=== PATIENT | male | born 1960 | race Caucasian/White ===

== ENCOUNTER 2024-04-17 19:30 | Emergency (ER) | payer OTHER, SELFPAY ==
[2024-04-17 19:33] VITALS: BP 191/138; PULSE 114; RESP 20; TEMP 36.7; O2SAT 94; BMI 34.4
--- OUTSIDE RECORDS SUMMARY | 2024-04-17 19:34 | XMS_ITS | Clinical Summary ---
Author Organization [facility] Address [place], [place] [address] Care Team Providers Care Strapper And Buffer Name Role Phone None Primary Care Provider Unavailabl e Allergies No known active allergies Medications Medication Sig Dispensed Refills Start Date End Date Status atorvastatin (LIPITOR) 20 mg tabletIndications:Hyp erlipidemia, unspecified hyperlipidemia type Take 1 Tablet (20 mg) by mouth at bedtime. 90 Tablet 3 11/29/2021 Active lisinopriL (PRINIVIL; ZESTRIL) 40 mg tabletIndications:Hyp ertension, unspecified type Take 1 Tablet (40 mg) by mouth once daily. 90 Tablet 3 11/29/2021 Active rivaroxaban (XARELTO) 20 mg tabletIndications:Per sistent atrial fibrillation (HC) Take 1 Tablet (20 mg) by mouth once daily with evening meal. 90 Tablet 3 11/29/2021 Active metoprolol succinate (TOPROL XL) 100 mg Sustained-Release tablet Take 100 mg by mouth. 12/08/2021 Active furosemide (LASIX) 20 mg tabletIndications:Chr onic systolic CHF (congestive heart failure) (HC) TAKE ONE TABLET BY MOUTH EVERY DAY IN THE MORNING. 90 Tablet 09/01/2022 Active lidocaine 5 % topical patchIndications:Acut e pain of right shoulder Apply on dry, clean, hairless skin. Apply 1 patch to painful area of skin for up to to 12 hours within 24 hour period. 30 Patch 11 02/13/2023 Active diclofenac topical (VOLTAREN) 1 % gelIndications:Arthra lgia, unspecified joint Apply as instructed to affected area by topical route twice daily. 100 g 06/10/2023 Active Active Problems Problem Noted Date Diagnosed Date Persistent atrial fibrillation 11/29/2021 Decreased cardiac ejection fraction 11/29/2021 Overview (02/04/2022): EF 50-55% 2021 Alcohol abuse 01/27/2013 Elevated liver enzymes 01/27/2013 HTN (hypertension) 10/15/2011 Encounters Date Type Department Care Team Description 04/15/2024 Refill [facility] [address] [place] [address] Josee Teague, Refill Request (Atorvastatin, Lisinopril, Diltiazem) from Last 3 Months Immunizations Name Administration Dates Next Due COVID-19 vaccine (Silvia-J&J) PF, MDV Influenza, IIV4 02/01/2022,02/19/2018,01/12/2014 Td (Age >=7 Years) 02/01/2022 Tdap 10/15/2011 Family History Medical History Relation Name Comments Other Father hearing problem s, on lots of meds but not sure what Unknown Mother no contact with mom Relation Name Status Comments Father Mother Social History Tobacco Use Types Packs/Day Years Used Date Smoking Tobacco: Never Smokeless Tobacco: Never Tobacco Cessation:Counseling Given: Yes Alcohol Use Standard Drinks/Week Comments Yes 0 (1 standard drink = 0.6 oz pur e alcohol) PHQ-2 Answer Date Recorded PHQ-2 TOTAL SCORE 0 11/29/2021 Social Connections Answer Date Recorded Frequency of Communication with Friends and Fami ly Not on file 05/08/2021 Alcohol Use Answer Date Recorded How often do you have a drink containing alcohol ? 2 02/01/2022 How many drinks containing a lcohol do you have on a typical day when you are drinking? 4 02/01/2022 How often do you have five or more drinks on one occasion? 2 02/01/2022 Financial Resource Strain Answer Date R ecorded Difficulty of Paying Living Expenses Not on file 05/08/2021 Difficulty of Paying Living Expenses Not on file 05/08/2021 Sex and Gender Information Value Date Recorded Sex Assigned at Not on file Gender Identity Not on file Sexual Orientation Not on file Obstetrics History Last Filed Vital Signs Vital Sign Reading Time Taken Comments Blood Pressure 162/95 04/09/2023 2:06 PM MILL CONTROL OPERATOR recheck BP Pulse 81 04/09/2023 2:06 PM MILL CONTROL OPERATOR Temperature 36.7 C (98 F) 04/24/2021 4:11 PM MILL CONTROL OPERATOR Respiratory Rate 16 04/24/2021 4:11 PM MILL CONTROL OPERATOR Oxygen Saturation 96% 04/09/2023 2:0 6 PM MILL CONTROL OPERATOR Inhaled Oxygen Concentration - - Weight 108.8 kg (239 lb 12. 8 oz) 04/09/2023 2:03 PM MILL CONTROL OPERATOR Height 175 cm (5' 8.9) 02/01/2022 3:54 PM CDT Body Mass Index 35.52 02/01/2022 3:54 PM CDT Plan of Treatment Upcoming Encounters Date Type Department Care Team (Late st Contact Info) Description 04/28/2024 3:10 PM MILL CONTROL OPERATOR Office Visit [facility] [address] [place] [address] Josee Teague DO [address] [place] [address] Health Maintenance Due Date Last Done Comments Pneumococcal series for age 6-64 (1 of 2 - PCV) 08/11/1967 HIV for age 15-65 1976 Colonoscopy through age 75 2006 Zoster (shingles) series for age 50+ (1 of 2) 08/11/2011 BMI (ht and wt on same day) for age 18+ 11/29/2022 11/29/2021, 04/24/2021, 10/03/2020, Additional history exists Depression screening for age 12+ 11/29/2022 11/29/2021, 10/03/2020, 05/29/2019, Additional history exists COVID-19 vaccine series ( season) 2024 06/20/2021, 10/03/2020 Influenza for age 50-64 01/12/2024 02/02/20, 02/19/2018, 01/12/2014 Lipids for age 45-75 11/29/2026 11/29/2021, 10/03/2020, 05/28/2019, Additional history exists Tetanus booster 02/02/2032 02/01/2022, 10/15/2011 Tdap Completed 10/15/2011 Hepatitis C screening for ag e 18-79 Completed 01/12/2014 Goals Goal Patient Goal Type Associated Problems Recent Progress Patient-Stated? Author BLOOD PRESSURE - MAINTAINS BP less than 140/90 Blood Pressure Kia Porter MD Procedures Procedure Name Priority Date/Time Associated Diagnosis Comments LDL CHOLESTEROL,DIRECT Routine 11/29/2021 3:40 PM CDT Hyperlipidemia, unspecified hyperlipidemia type ANTI HCV Routine 01/12/2014 4:15 PM CDT Need for hepatitis C screening test from Last 3 Months or Most Recently Relevant to Health Maintenance Results * LDL CHOLESTEROL,DIRECT (11/29/2021 3:40 PM CDT) Pathologist [facility] LDL CHOLESTEROL,DI RECT 54 mg/dL 11/30/2021 4:47 PM CDT [facility] PROVIDER ORDERED STATUS RANDOM 11/30/2021 4:47 PM CDT [facility] Blood BLOOD SPECIMEN / Unknown Venipuncture / Unknown 11/29/2021 3:40 PM CDT 11/29/2021 3:40 PM CDT Narrative [facility] - 11/30/2021 4:47 PM CDT RISK CATEGORY LDL GOAL (mg/dL) Vascular disease and/or diabetes (<100) Multiple (2+) risk factors (<130) 0-1 risk factor (<160) Josee Teague DO CHEMISTRY [facility] [address] [place] [address], * ANTI HCV [17927.2] (01/12/2014 4:15 PM CDT) Pathologist [facility] HEPATITIS C ANTIBODY Non-Reacti ve Non-Reacti ve 01/13/2014 1:19 PM CDT [facility] Blood specimen (specimen) BLOOD SPECIMEN / Unknown Venipuncture / Unknown 01/12/2014 4:15 PM CDT 01/12/2014 4:15 PM CDT Narrative [facility] - 01/13/2014 1:19 PM CDT Antibodies to HCV not detected; does not exclude the possibility of exposure to HCV. Josee Teague DO SEND OUTS [facility] [address] [place] [address], [place] from Last 3 Months or Most Recently Relevant to Health Maintenance Care Teams Strapper And Buffer Relationship Specialty Start Date End Date None . PCP - General 03/24/24
--- OUTSIDE RECORDS SUMMARY | 2024-04-17 19:34 | XMS_ITS | Encounter Summary ---
Author Organization [place] Address formerly [facility] [place] [address] Care Team Providers Care Side Show Entertainer Name Role Phone Clinic, [facility] Primary Care Provider Kodak Rome MD Unavailable [phone] Reason for Visit * Reason Onset Date Comments Medication Request 12/24/2023 atorvastatin ,xarelto ,furosemide,lisinopril Encounter Details Date Type Department Care Team (Late st Contact Info) Description 12/24/2023 [facility] [address] [place] [address] Kodak Rome MD [address] [place] [address] [address] [place], [place] [id number] Medication Request (atorvastatin ,xarelto ,furosemide,/lisinopril ) Social History Tobacco Use Types Packs/Day Years Used Date Smoking Tobacco: Never Smokeless Tobacco: Never Alcohol Use Standard Drinks/Week Comments Yes 0 (1 standard drink = 0.6 oz pur e alcohol) occasional beer on weekends PHQ-2 Answer Date Recorded PHQ-2 Score 0 08/31/2022 Adolescent Education Answer Date Record ed Getting School Help Needed Not on file 02/02 Sex and Gender Information Value Date Recorded Sex Assigned at Not on file 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 Yes Name of medication being requested: atorvastatin xarelto furosemide lisinopril Provider who prescribed the medication: Dr. rome Pharmacy: [id number] Date medication is needed: 12/25/2023 Action Taken: Other: cardiology Travel Screening: Not Applicable Thank you! Specialty Access Center Date of Service: documented in this encounter Plan of Treatment Not on file documented as of this encounter Visit Diagnoses Not on filedocumented in this encounter Care Teams Side Show Entertainer Relationship Specialty Start Date End Date [facility], [address] [address] PCP - General 11/01/21 Kodak Rome MD [address] [place] [address] Assigned Heart and Vascular Provider 12/09/21 03/03/24 documented as of this encounter
--- OUTSIDE RECORDS SUMMARY | 2024-04-17 19:34 | XMS_ITS | Encounter Summary ---
Author Organization [place] [facility] [place] Address [facility] 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 Letter sent. No additional refills without follow up. CTOR OF REIMBURSEMENT * Telephone Encounter - Natalie Engel RN - 03/31/2024 4:16 PM DIRECTOR OF REIMBURSEMENT Patient called a second time and VM left to inform him that xeralto has been refilled for 1 month with 1 refill and that he will need a follow up with Cardiology or [facility] for ongoing prescriptions. Patient asked to please return call to team 2 nurse line to confirm he has received messages. CTOR OF REIMBURSEMENT * Telephone Encounter - Kira Vyas RN - 03/31/2024 1:06 PM CST Images from the original note were not included. Kodak Rome MD You54 minutes ago (12:11 PM) Refill meds. He needs to follow-up with either us or primary in the next month or 2. 30 days with 1 refill sent to pharmacy. Called patient and left a message to please call back to discuss refills and need for cardiology follow up. CTOR OF REIMBURSEMENT * Telephone Encounter - Kira Vyas RN - 03/31/2024 11:10 AM CST [facility] Refill Guideline reviewed. Medication does not meet criteria for refill dueto overdue for follow up, no responses to outreach attempts. Messaged to providers team for furtherreview. CTOR OF REIMBURSEMENT documented in this encounter Plan of Treatment Not on file documented as of this encounter Visit Diagnoses Diagnosis New onset atrial fibrillation (H) Atrial fibrillation documented in this encounter Care Teams Life Care Planner Relationship Specialty [place] [address] PCP - General 11/01/21 documented as of this encounter
--- OUTSIDE RECORDS SUMMARY | 2024-04-17 19:34 | XMS_ITS | Referral Summary ---
Author Organization [place] Address [facility] [address] Care Team Providers Care Planning Specialist Name Role Phone [facility], [facility] Primary Care Provider Encounters Date Type Department Care Team Description 03/31/2024 Telephone [facility] [address] [place] [address] Kira Vyas RN Refill Request (Xarelto/) from Last 3 Months Allergies No known active allergies Medications metoprolol succinate ER (TOPROL XL) 100 MG 24 hr tabletIndications:Chron ic atrial fibrillation (H) Take 1 tablet (100 mg) by mouth 2 times daily 180 tablet 024 Active diltiazem ER (DILT-XR) 120 MG 24 hr capsuleIndications:New onset atrial fibrillation (H) Take 1 capsule (120 mg) by mouth 2 times daily Appointment required for further refills 180 capsule 024 Active atorvastatin (LIPITOR) 20 MG tabletIndications:Pure hypertriglyceridemia Take 1 tablet (20 mg) by mouth daily Appointment required for further refills 90 tablet 024 Active furosemide (LASIX) 20 MG tabletIndications:Essen tial hypertension Take 1 tablet (20 mg) by mouth daily Appointment required for further refills 90 tablet 024 Active lisinopril (ZESTRIL) 40 MG tabletIndications:Essen tial hypertension Take 1 tablet (40 mg) by mouth daily. 90 tablet 024 Active rivaroxaban ANTICOAGULANT (XARELTO) 20 MG TABS tabletIndications:New onset atrial fibrillation (H) Take 1 tablet (20 mg) by mouth daily (with dinner). Appointment required for further refills 30 tablet 1 Active rivaroxaban ANTICOAGULANT (XARELTO) 20 MG TABS tabletIndications:New onset atrial fibrillation (H) Take 1 tablet (20 mg) by mouth daily (with dinner) Appointment required for further refills 90 tablet 024 2023 Disconti nued(Reo rder (No AVS)) Active Problems Problem Noted Date Diagnosed Date Ascending aorta dilatation 08/31/2022 Dilated aortic root 08/31/2022 Heart failure with preserved ejection fraction, NYHA class I 08/31/2022 Nonischemic cardiomyopathy 08/31/2022 Essential hypertension 12/08/2021 Class 2 obesity due to exces s calories without serious comorbidity with body mass index (BMI) of 35.0 to 35.9 in adult 12/08/2021 Peripheral edema 12/08/2021 Pure hypertriglyceridemia 12/08/2021 Permanent atrial fibrillation 11/01/2021 Social History Tobacco Use Types Packs/Day Years [...] on file 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 Gender Identity Not on file Sexual Orientation Not on file Last Filed Vital Signs Vital Sign Reading Time Taken Comments Blood Pressure 119/79 08/31/2022 3:23 PM CDT Pulse 57 08/31/2022 3:23 PM CDT Temperature 36.3 C (97.4 F) 11/02/2021 9:56 AM CDT Respiratory Rate 18 11/02/2021 9:56 AM CDT Oxygen Saturation 96% 08/31/2022 3:23 PM CDT Inhaled Oxygen Concentration - - Weight 105.7 kg (233 lb 1.6 oz) 08/31/2022 3:23 PM CDT Height 172.7 cm (5' 8) 08/31/2022 3:23 PM CDT Body Mass Index 35.44 08/31/2022 3:23 PM CDT Plan of Treatment Not on file Procedures Procedure Name Priority Date/Time Associated Diagnosis Comments LIPID PROFILE Routine 2022 7:45 AM CDT Pure hypertriglyceridemia BASIC METABOLIC PANEL Routine 2022 7:45 AM CDT Essential hypertension ALT Routine 2022 7:45 AM CDT Pure hypertriglyceridemia CBC WITH PLATELETS Routine 11/02/2021 6:12 AM CDT TSH WITH FREE T4 REFLEX STAT 11/01/2021 3:17 PM CDT from Last 3 Months or Most Recently Relevant to Health Maintenance Results * Lipid Profile (2022 7:45 AM CDT) Cholesterol 117 <200 mg/dL 2022 11:34 AM CDT [facility] Triglycerides 126 <150 mg/dL 2022 11:34 AM CDT [facility] Direct Measure HDL 42 >=40 mg/dL 2022 11:34 AM CDT [facility] LDL Cholesterol Calculated 50 <=100 mg/dL 2022 11:34 AM CDT [facility] Non HDL Cholesterol 75 <130 mg/dL 2022 11:34 AM CDT [facility] Blood STRUCTURE OF LEFT UPPER LIMB / Unknown Venipuncture / Unknown 2022 7:45 AM CDT 2022 7:50 AM CDT Narrative [facility] - 2022 11:34 AM CDT Cholesterol Desirable: <200 mg/dL Triglycerides Normal: Less than 150 mg/dL Borderline High: 150-199 mg/dL High: 200-499 mg/dL Very High: Greater than or equal to 500 mg/dL Direct Measure HDL Female: Greater than or equal to 50 mg/dL Male: Greater than or equal to 40 mg/dL LDL Cholesterol Desirable: <100mg/dL Above Desirable: 100-129 mg/dL Borderline High: 130-159 mg/dL High: 160-189 mg/dL Very High: >= 190 mg/dL Non HDL Cholesterol Desirable: 130 mg/dL Above Desirable: 130-159 mg/dL Borderline High: 160-189 mg/dL High: 190-219 mg/dL Very High: Greater than or equal to 220 mg/dL Kodak Rome MD LAB - BLOOD ORDERABLES Fin al Result LABORATORY [facility] [place] [facility] [address] [facility] [address], [address] [place] [address], [place] [phone] * ALT (2022 7:45 AM CDT) ALT 48 10 - 50 U/L 2022 8:21 AM CDT LABORATORY Blood STRUCTURE OF LEFT UPPER LIMB / Unknown Venipuncture / Unknown 2022 7:45 AM CDT 2022 7:50 AM CDT Kodak Rome MD LAB - BLOOD ORDERABLES Fin al Result LABORATORY [facility] [address] Lab (1st floor, no room number) [place] [address], [place] [phone] * (ABNORMAL) Basic metabolic panel (2022 7:45 AM CDT) Sodium 139 136 - 145 mmol/L 2022 8:21 AM CDT LABORATORY Potassium 4.2 3.4 - 5.3 mmol/L 2022 8:21 AM CDT LABORATORY Chloride 103 98 - 107 mmol/L 2022 8:21 AM CDT LABORATORY Carbon Dioxide (CO2) 25 22 - 29 mmol/L 2022 8:21 AM CDT LABORATORY Anion Gap 11 7 - 15 mmol/L 2022 8:21 AM CDT LABORATORY Urea Nitrogen 15.0 8.0 - 23.0 mg/dL 2022 8:21 AM CDT [facility] Creatinine 0.83 0.67 - 1.17 mg/dL 2022 8:21 AM CDT [facility] Calcium 9.6 8.8 - 10.2 mg/dL 2022 8:21 AM CDT [facility] Glucose 122(H) 70 - 99 mg/dL 2022 8:21 AM CDT [facility] GFR Estimate >90 >60 mL/min/1.7 3m2 2022 8:21 AM CDT [facility] Comment:eGFR calculated usin 2020 CKD-EPI equation. Blood STRUCTURE OF LEFT UPPER LIMB / Unknown Venipuncture / Unknown 2022 7:45 AM CDT 2022 7:50 AM CDT Kodak Rome MD LAB - BLOOD ORDERABLES Fin al Result [facility] [address] Lab (1st floor, no room number) [place] [address], [facility] [phone] * CBC with platelets (11/02/2021 6:12 AM CDT) WBC Count 6.0 4.0 - 11.0 10e3/uL 11/02/2021 6:29 AM CDT [facility] RBC Count 4.69 4.40 - 5.90 10e6/uL 11/02/2021 6:29 AM CDT [facility] Hemoglobin 15.2 13.3 - 17.7 g/dL 11/02/2021 6:29 AM CDT [facility] Hematocrit 45.7 40.0 - 53.0 % 11/02/2021 6:29 AM CDT [facility] MCV 97 78 - 100 fL 11/02/2021 6:29 AM CDT [facility] MCH 32.4 26.5 - 33.0 pg 11/02/2021 6:29 AM CDT [facility] MCHC 33.3 31.5 - 36.5 g/dL 11/02/2021 6:29 AM CDT [facility] RDW 13.0 10.0 - 15.0 % 11/02/2021 6:29 AM CDT [facility] Platelet Count 193 150 - 450 10e3/uL 11/02/2021 6:29 AM CDT [facility] Blood STRUCTURE OF RIGHT HAND / Unknown Venipuncture / Unknown 11/02/2021 6:12 AM CDT 11/02/2021 6:24 AM CDT Doreen Ford PA-C LAB - BLOOD ORDERABLES Fin al Result [facility] [address] Lab (1st floor, no room number) [place] [address], [facility] [phone] * (ABNORMAL) TSH with free T4 reflex (11/01/2021 3:17 PM CDT) TSH 4.29(H) 0.40 - 4.00 mU/L 11/01/2021 4:22 PM CDT [facility] Blood STRUCTURE OF RIGHT UPPER LIMB / Unknown Venipuncture / Unknown 11/01/2021 3:17 PM CDT 11/01/2021 3:23 PM CDT Epifanio Qiu MD LAB - BLOOD ORDERABLES Fin al Result Performing Organization Address City/[facility]/ZIP Co de Phone Number [facility] [address] Lab (1st floor, no room number) [place] [address], [facility] [phone] from Last 3 Months or Most Recently Relevant to Health Maintenance Insurance [facility] Advance Directives For more information, please contact: [phone] * Full Code (Latest Code Status on File) Date Activated Date Inactivated Comments 11/01/2021 9:01 PM 11/02/2021 2:08 PM All basic an d advanced life-sustaining interventions are performed as appropriate Question Answer Comments Code status determined by: Discussion with wendy nt/ legal decision maker Care Teams Planning Specialist Relationship Specialty Start Date End Date [facility], [address] [address] PCP - General 11/01/21
--- OUTSIDE RECORDS SUMMARY | 2024-04-17 19:34 | XMS_ITS | Clinical Summary ---
Author Organization [place] Address [facility] [place] [address] Care Team Providers Care Ui Developer Name Role Phone Clinic, [facility] Primary Care Provider Allergies No known active allergies Medications metoprolol [...] required for further refills 30 tablet 1 024 Active rivaroxaban ANTICOAGULANT (XARELTO) 20 MG [...] Pure hypertriglyceridemia 12/08/2021 Permanent atrial fibrillation 11/01/2021 Encounters Date Type Department Care Team Description 03/31/2024 Telephone [facility] [address] [place] [address] Kira Vyas RN Refill Request (Xarelto/) from Last 3 Months Social History Tobacco Use Types Packs/Day Years [...] on file Legal Sex Male 3:26 AM [employer] Gender Identity Not on file Sexual Orientation [...] 08/31/2022 3:23 PM CDT Plan of Treatment Health Maintenance Due Date Last Done Comments ADVANCE CARE PLANNING 1960 ANNUAL REVIEW OF HM ORDERS 1961 CT COLONOGRAPHY 1961 FIT 1961 FLEX SIG 1961 HF ACTION PLAN 1961 sDNA (Cologuard) 1960 Pneumococcal Vaccine: Pediatrics (0 to 5 Years) and At-Risk Patients (6 to 64 Years) (1 of 2 - PCV) 08/11/1967 COLONOSCOPY 08/11/1971 COLORECTAL CANCER SCREENING 08/11/1971 HIV SCREENING 1976 HEPATITIS C SCREENING 08/11/1979 ZOSTER IMMUNIZATION (1 of 2) 08/11/2011 RSV VACCINE (1 - Risk 60-74 years 1-dose series) 2021 CBC 11/02/2022 11/02/2021, 11/01/2021 YEARLY PREVENTIVE VISIT 02/01/2023 02/02/20 22, 10/03/2020 BMP 02/09/2023 2022, 11/01/2021, 12/06/2005 PHQ-2 (once per calendar year) 2023 08/31/2022 ALT 08/11/2023 2022, 12/06/2005 LIPID 08/11/2023 2022 COVID-19 Vaccine (3 - 2023-2 5 season) 2024 06/20/2021, 10/03/2020 INFLUENZA VACCINE (#1) 2024 , 02/19/2018, 01/12/2014 GLUCOSE 2025 2022, 11/01/2021, 12/06/2005 DTAP/TDAP/TD IMMUNIZATION (3 - Td or Tdap) 02/02/2032 02/01/2022, 10/15/2011 TSH W/FREE T4 REFLEX Completed 11/01/2021, 11/01/2021 HPV IMMUNIZATION Aged Out No longer e ligible based on patient's age to complete this topic MENINGITIS IMMUNIZATION Aged Out No l onger eligible based on patient's age to complete this topic RSV MONOCLONAL ANTIBODY Aged Out No l onger eligible based on patient's age to complete this topic Procedures Procedure Name Priority Date/Time Associated Diagnosis [...] LAB - BLOOD ORDERABLES Fin al Result [facility] [address] [facility] [address] [facility], Room [address] [place] [address], [facility] [phone] * ALT (2022 7:45 AM CDT) ALT 48 10 - 50 U/L 2022 8:21 AM CDT LABORATORY Blood STRUCTURE OF LEFT UPPER LIMB / Unknown Venipuncture / Unknown 2022 7:45 AM CDT 2022 7:50 AM CDT Kodak Rome MD LAB - BLOOD ORDERABLES Fin al Result LABORATORY [facility] [address] Lab (1st floor, no room number) [place] [address], [facility] [phone] * (ABNORMAL) Basic metabolic panel (2022 7:45 AM CDT) Sodium 139 136 - 145 mmol/L 2022 8:21 AM CDT LABORATORY Potassium 4.2 3.4 - 5.3 mmol/L 2022 8:21 AM CDT [facility] Chloride 103 98 - 107 mmol/L 2022 8:21 AM CDT LABORATORY Carbon Dioxide (CO2) 25 22 - 29 mmol/L 2022 8:21 AM CDT LABORATORY Anion Gap 11 7 - 15 mmol/L 2022 8:21 AM CDT [facility] Urea Nitrogen 15.0 8.0 - 23.0 [...] 8:21 AM CDT [facility] Comment:eGFR calculated us2020 CKD-EPI equation. Blood STRUCTURE OF LEFT UPPER LIMB / Unknown Venipuncture / Unknown 2022 7:45 AM CDT 2022 7:50 AM CDT Kodak Rome MD LAB - BLOOD ORDERABLES Fin al Result [facility] LABORATORY [facility] [address] Lab (1st floor, no room number) [place] [address] [phone] * CBC with platelets (11/02/2021 6:12 AM [...] ORDERABLES Fin al Result Performing Organization Address City/[facility]/ZIP Co de Phone Number [facility] [address] Lab (1st floor, no room number) [place] [address], [facility] [phone] * (ABNORMAL) TSH with free T4 reflex (11/01/2021 3:17 PM CDT) TSH 4.29(H) 0.40 - 4.00 mU/L 11/01/2021 4:22 PM CDT [facility] Blood STRUCTURE OF RIGHT UPPER LIMB / Unknown Venipuncture / Unknown 11/01/2021 3:17 PM CDT 11/01/2021 3:23 PM CDT Epifanio Qiu MD LAB - BLOOD ORDERABLES Fin al Result Performing Organization Address [facility]/ZIP Co de Phone Number [facility] Lab [address] Lab (1st floor, no room number) [place] [address], [facility] [phone] from Last 3 Months or Most Recently Relevant to Health Maintenance Insurance [employer] [place] Advance Directives For more information, please contact: [phone] * Full Code (Latest Code Status on File) Date Activated Date Inactivated Comments 11/01/2021 9:01 PM 11/02/2021 2:08 PM All basic an d advanced life-sustaining interventions are performed as appropriate Question Answer Comments Code status determined by: Discussion with wendy nt/ legal decision maker Care Teams Ui Developer Relationship Specialty Start Date End Date [facility], [address] [id number] PCP - General 11/01/21
--- NOTE | 2024-04-17 19:50 | ED.GENADULT ---
HPI - General Adult General Date Seen: 04/17/24 Chief complaint: Chest Pain Stated complaint: trouble breathing, chest pain Time Seen by Provider: 04/17/24 19:49 History of Present Illness HPI narrative: 63-year-old male presenting to the ER today for chest pain and shortness of breath that happened today and is been getting steadily worse. 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 He has pain in the center of his chest that is worth with movement and exertion. No recent illnesses. Is unsure of his med list but has been out of his meds for a week. He has been trying to get hold of his PCP to get his meds refilled with having responded yet. Says over the past week being off his meds he has gained about 6 lb. He has not really noticed any fluid retention in his ankles. Does have some chronic peripheral edema but is not any worse than normal. He has not had any fever chills. No cough. No recent travel or immobilization. Since yesterday started having some mild discomfort in the central chest just left of the sternal border. It was very mild yesterday and was present off and on. No clear pattern. Today the pain is again been present off and on all day. At about 303 this afternoon he was installing a new dryer in his house. 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 He says it does go only been down for a few seconds and then had to sit up and rest because he was so short of breath. His chest pain really did not get worse during that episode. He is worried that he might be having the symptoms because he is out of his meds. He also did a Google search and he is worried about congestive heart failure. He has a history of AFib. He is on blood pressure medications. He has not had any previous stents. We have no previous records in the [facility] medical record. He does have a chart in the [employer] system. Per [facility] care link past medical history includes: Hypertension Persistent atrial fibrillation Decreased ejection fraction Alcohol abuse Ascending aortic dilatation Med list include Atorvastatin Furosemide 20 mg daily Lisinopril 40 mg daily Metoprolol XL 100 mg daily Xarelto 20 mg daily. It looks like his clinics and a message to his PCP requesting follow-up on 04/17 (today) Simón castrejon looks like he sees the [facility] technician automated equipment, Dr. Rome. Most recent cardiology note I can find in his chart was from 08/31/[address] Diaz Per his cardiology note 08/31/2022... 61-year-old gentleman with PMH... hypertension, obesity, peripheral edema, hypertriglyceridemia and asymptomatic atrial fibrillation. ? 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 He was sent to the [facility] where he was admitted. Metoprolol tartrate was added to his regimen. Troponins were negative. TSH was mildly elevated at 4.29 with a T4 of 0.8. EKG demonstrated atrial fibrillation with a rate of approximately 110. ? Echocardiogram was performed demonstrating ejection fraction of 50%-55%. He had [id number] left ventricular hypertrophy, mild mitral regurgitation, tricuspid regurgitation, aortic insufficiency with mild to moderate pulmonic regurgitation. He also had a mildly dilated aortic root at 3.9 and ascending aorta at 4.1. Pulmonary pressures estimated to be 23 mmHg plus right atrial pressure. He had a normal IVC. ? Follow up with his primary care doctor rechecked a TSH which is normal. BNP is mildly elevated at 297 with their normal limits being less than 100. Last fasting lipid profile that I find in the chart is from 2019 with total cholesterol of 132, HDL 47, LDL of 47 and triglycerides of 192. Reviewing his primary care's note, he was set up for a sleep study and a stress nuclear scan.Robert states that he has no family history of coronary artery disease. He is a lifelong nonsmoker. He states he used to drink alcohol quite heavily, but when his passed 2 years ago, he stopped. He was drinking mostly with her. He states now he drinks probably 2 days a week, although on the weekend he states he can drink up to a 12-pack of beer a day but normally just has a 2 or 3 drinks. He has no exertional chest, arm, neck, jaw or shoulder discomfort. Denies dyspnea on exertion, orthopnea or PND. He is completely unaware of his A-fib. He has had no bleeding problems on his warfarin. No symptoms to suggest a TIA or CVA. His ankle edema is at baseline. He does stand for prolonged periods of time at work ? His Lexiscan was negative for ischemia. Assessment and plan. Paula appears to be doing well from a cardiac standpoint without clinical evidence of ischemia or heart failure. I will recheck an echocardiogram to comes back next time but I suspect his mild nonischemic cardiomyopathy has resolved. We made multiple adjustments on his medications to get control of his A-fib with his most recent follow-up Holter demonstrating an average heart rate of 80 ranging from 50-132. There was some confusion between our records in his records but he is not on diltiazem. And clearly has a well-controlled heart rate. Today's EKG demonstrates A-fib flutter with a heart rate of 82. He will continue on anticoagulation to decrease his risk of a cerebrovascular accident. Regarding his peripheral edema I suspect is primarily dependent edema probably with some venous insufficiency. We talked about the importance of salt in his diet and using compression stockings. If he continues to have problems I can refer him onto the venous clinic. As stated his thyroid function test have normalized. I will also check a CMP to see what his total protein and albumin are doing. They were last checked in 2005. Related Data Home Medications ?Medication ?Instructions ?Recorded ?Confirmed atorvastatin 20 mg tablet 20 mg PO DAILY 04/17/24 04/17/24 diltiazem HCl 120 mg 120 mg PO BID 04/17/24 04/17/24 capsule,extended release 24 hr, controlled furosemide 20 mg tablet 20 mg PO DAILY 04/17/24 04/17/24 lisinopril 40 mg tablet 40 mg PO DAILY 04/17/24 04/17/24 metoprolol succinate 100 mg 100 mg PO BID 04/17/24 04/17/24 tablet,extended release 24 hr rivaroxaban 20 mg tablet (Xarelto) 20 mg PO QPM 04/17/24 04/17/24 Previous Rx's ?Medication ?Instructions ?Recorded furosemide 20 mg tablet 20 mg PO DAILY #30 tabs 04/17/24 lisinopril 40 mg tablet 40 mg PO DAILY #30 tabs 04/17/24 metoprolol succinate 100 mg 100 mg PO DAILY #30 tabs 04/17/24 tablet,extended release 24 hr rivaroxaban 20 mg tablet (Xarelto) 20 mg PO DAILY #30 tabs 04/17/24 Allergies Allergy/AdvReac Type Severity Reaction Status Date / Time No Known Drug Allergies Allergy Verified 04/17/24 19:40 [facility] Social History Smoking Status: Never smoker Do you use any of these nicotine containing products: None Second hand tobacco smoke exposure: No How often do you have a drink containing alcohol: never AUDIT-C Alcohol total score: 0 Non-prescribed substance use: denies use service: No Exam Narrative: Exam Narrative: Constitutional: Appears well-developed and well-nourished. Alert. Conversant. Non toxic. Conversant and smiling and laughing. Has a good sense of humor. HENT: Head: Atraumatic. Nose: Nose normal. Mouth/Throat: Oral mucosa is clear and moist. no trismus. Pharynx normal. Tonsils symmetric. No tonsillar enlargement, erythema, or exudate. Eyes: Conjunctivae normal. EOM normal. Pupils equal, round, and reactive to light. No scleral icterus. Neck: Normal range of motion. Neck supple. No tracheal deviation present. No JVD Cardiovascular: Tachycardic, irregularly irregular rhythm. Heart rate ranging about 110-115 on the monitor, atrial fibrillation.. No gallop. No friction rub. No murmur heard. Symmetric radial and PT artery pulses Pulmonary/Chest: Effort normal. No stridor. No respiratory distress. No wheezes. No rales. No rhonchi . No tenderness. Abdominal: Soft. Bowel sounds normal. No distension. No mass. No tenderness. No rebound. No guarding. Musculoskeletal: RUE: Normal range of motion. No tenderness. No deformity LUE: Normal range of motion. No tenderness. No deformity RLE: Normal range of motion. Trace edema. No tenderness. No deformity LLE: Normal range of motion. Trace edema. No tenderness. No deformity Lymph: No cervical adenopathy. Neurological: Alert and oriented to person, place, and time. Normal strength. CN II-VII intact. No sensory deficit. GCS eye subscore is 4. GCS verbal subscore is 5. GCS motor subscore is 6. Normal coordination Skin: Skin is warm and dry. No rash noted. No pallor. Normal capillary refill. Psychiatric: Normal mood. Normal affect. Const: Vital Signs, click to edit/add: Vital Signs - 24 hr 04/17/24 19:33 04/17/24 22:44 Temperature 98.0 F 98.0 F Pulse Rate [Pulse Oximeter] 114 H 79 Respiratory Rate 20 16 Blood Pressure [Le ft Upper Arm] 191/138 H 145/100 H Pulse Oximetry 94 95 Oxygen Delivery Me thod Room Air Room Air Course Course ED Course: Recheck-heart rate down to the 70s and 80s after administration of metoprolol. Blood pressure is also down after oral metoprolol. Patient says he feels much better and back to normal. Initial troponin is normal. Waiting on chest x-ray results. Given chest pain will check a 2nd troponin 2 hours after the 1st. Reevaluation(s) Reevaluation #1: Recheck-2nd troponin is back and is normal. Vital Signs Vital signs: Initial Vital Signs Temperature 98.0 F 04/17/24 19:33 Temperature Source Temporal Artery Scan 04/17/24 19:33 Pulse Rate 114 H 04/17/24 19:33 Respiratory Rate 20 04/17/24 19:33 Blood Pressure 191/138 H 04/17/24 19:33 Blood Pressure Mean 155 H 04/17/24 19:33 Blood Pressure Position Supine 04/17/24 19:33 Pulse Oximetry 94 04/17/24 19:33 Oxygen Delivery Method Room Air 04/17/24 19:33 Vital Signs Temperature 98.0 F 04/17/24 19:33 Pulse Rate 114 H 04/17/24 19:33 Respiratory Rate 20 04/17/24 19:33 Blood Pressure 191/138 H 04/17/24 19:33 Pulse Oximetry 94 04/17/24 19:33 Oxygen Delivery Method Room Air 04/17/24 19:33 Temperature 98.0 F 04/17/24 22:44 Pulse Rate 79 04/17/24 22:44 Respiratory Rate 16 04/17/24 22:44 Blood Pressure 145/100 H 04/17/24 22:44 Pulse Oximetry 95 04/17/24 22:44 Oxygen Delivery Method Room Air 04/17/24 22:44 Medications Administered Medications: Discontinued Medications Generic Name Dose Route Start Last Admin Trade Name Freq PRN Reason Stop Dose Admin Aspirin 162 mg 04/17/24 20:14 04/17/24 20:25 Aspirin 81 Mg Tab.Chew PO 04/17/24 20:15 162 mg ONCE ONE Administration Metoprolol Tartrate 50 mg 04/17/24 20:14 04/17/24 20:26 Metoprolol Tartrate 50 Mg Tablet PO 04/17/24 20:15 50 mg ONCE ONE Administration Medical Decision Making MDM Narrative Medical decision making narrative: This patient presents to the ER today for evaluation of chest pain that is been going on since yesterday, intermittently but almost all day long today. Also some shortness of breath that began this afternoon while he was installing a new dryer in his home.. Differential was broad. He does have history of persistent atrial fibrillation and unfortunately has been out of his meds for the past week because he was not able to get refills arrange through his primary care clinic. As result he does have atrial fibrillation with rapid ventricular response. Heart rate typically in the 1 teens up to 120. After oral metoprolol heart rate is down into the 70s 80s and he says he feels dramatically better. His chest discomfort is gone and his breathing is back to normal. I suspect that his symptoms were probably driven by rapid ventricular response with his AFib. However a broader differential is considered. We considered possible ACS, however workup with EKG and troponin is negative. Given time since onset of symptoms, with intermittent symptoms in a we did check delta troponins which are both normal. I do not think the patient needs to be admitted for further sets of enzymes. EKG shows no evidence for pericarditis. Clinical presentation not suggestive of myocarditis. Chest x-ray shows no evidence for pneumonia, pneumothorax, pulmonary edema, pleural effusion, rib fracture, cardiomegaly. Mediastinum is normal on the x-ray. The patient has no ripping or tearing pain through to the back and has symmetric pulses on exam, no other acute neuro findings so I doubt aortic dissection. Risk of radiation and contrast exposure would outweigh the benefit of CT angiogram. We considered PE for this patient. Overall low risk. D-dimer is normal. No wheezing or bronchospasm to suggest COPD/asthma. No signs of chest wall cellulitis, shingles, injury. With reasonable clinical confidence, I think the patient is safe for outpatient follow up. Discussed return precautions. Questions answered. Patient voices comfort with the plan. Will send in prescriptions for refills for his Xarelto, metoprolol, lisinopril. He will follow-up with his PCP office for his checkup and to get other medications refilled. Lab Data Labs: Lab Results 04/17/24 Range/Units 20:04 WBC 7.93 (4.50-11.00) K/uL RBC 4.31 (4.30-5.90) m/uL Hgb 14.4 (13.5-17.5) gm/dL Hct 43.2 (37.0-53.0) % MCV 100 (80-100) fL MCH 33 (26-34) pg MCHC 33 (32-36) gm/dL RDW Coeff of Serina 13.2 (11.5-15.5) % Plt Count 137 L (140-440) K/uL Neut % (Auto) 51.5 (42.0-72.0) % Lymph % (Auto) 37.6 (20-44) % [place] % (Auto) 9.0 (0.0-11.0) % Eos % (Auto) 1.6 (0.0-7.0) % Baso % (Auto) 0.3 (0.0-3.0) % Neut # (Auto) 4.09 (1.7-7.0) K/uL Lymph # (Auto) 2.98 H (0.90-2.90) K/uL [place] # (Auto) 0.70 (0.00-0.90) K/UL Eos # (Auto) 0.13 (0.00-0.50) K/uL Baso # (Auto) 0.02 (0.00-0.30) K/uL Abs Immat Gran (auto) 0.00 (0.00-0.30) K/uL Imm/Tot Granulo (auto) 0.0 % D-Dimer Quant (PE/DVT) 0.30 (0.00-0.50) ug/ml Sodium 139 (135-149) mmol/L Potassium 4.8 (3.6-5.1) mmol/L Chloride 107 (96-114) mmol/L Carbon Dioxide 22 (20-32) mmol/L Anion Gap 10 (7-15) mEq/L BUN 25 (7-30) mg/dL Creatinine 0.9 (0.5-1.5) mg/dL Estimated Creat Clear 79.08 Estimated GFR 97 ml/min Glucose 135 H (60-115) mg/dL Calcium 9.4 (8.4-10.6) mg/dL Troponin I 0.03 (0.01-0.04) ng/mL NT-Pro-B Natriuret Pep 2280 pg/mL Imaging Data Chest x-ray: Attestation: I have reviewed the pertinent imaging results. Radiologist's impression: IMPRESSION: No definite focal pulmonary consolidation. There is cardiomegaly. ECG Data Attestation: I personally reviewed and interpreted this ECG as follows: Interpretation: Atrial fibrillation with rapid ventricular response Rate: 117 OR: Not applicable QRS axis: Right superior axis deviation. No pathologic Q-waves. ST segment/T wave: Artifact in the baseline. No obvious ST segment elevation or depression. QTc: 407 Discharge Plan Discharge Clinical Impression: Chest pain, Dyspnea, Atrial fibrillation with RVR Patient Disposition: Home, Self-Care Condition: Stable Instructions: A-fib (Atrial Fibrillation) (ED), Chest Pain (DC) Additional Instructions: As we discussed, please come back to the ER right away if you have any new recurring symptoms of chest pain, trouble breathing, or any other problems. Please ref[facility] your medications at [facility] tomorrow. Follow-up with your regular doctor as soon as possible. Prescriptions: New Xarelto 20 mg tablet 20 mg PO DAILY Qty: 30 2RF Rx Instructions: must administer with evening meal metoprolol succinate 100 mg tablet extended release 24 hr 100 mg PO DAILY Qty: 30 2RF furosemide 20 mg tablet 20 mg PO DAILY Qty: 30 2RF lisinopril 40 mg tablet 40 mg PO DAILY Qty: 30 2RF No Action atorvastatin 20 mg tablet 20 mg PO DAILY metoprolol succinate 100 mg tablet extended release 24 hr 100 mg PO BID diltiazem HCl 120 mg capsule,ext.rel 24h degradable 120 mg PO BID furosemide 20 mg tablet 20 mg PO DAILY lisinopril 40 mg tablet 40 mg PO DAILY Xarelto 20 mg tablet 20 mg PO QPM Follow Up/Referrals: Josee Teague DO [Primary Care Provider] - Stand Alone Forms: MyHealth Info Instructions
--- NOTE | 2024-04-17 19:59 | CRLHL7_ITS ---
For Patients: As a result of the Century Cures Act, medical imaging exams and procedure reports are released immediately into your electronic medical record. You may view this report before your referring provider. If you have questions, please contact your health care provider. INDICATION: One day of left-sided chest pain. Shortness of breath. COMPARISON: None. TECHNIQUE: Two radiographic view(s) of the chest. FINDINGS: No pleural effusion. No pneumothorax. No definite focal pulmonary consolidation. Cardiomegaly. There are osseous degenerative changes. Diffuse idiopathic skeletal hyperostosis. Slight anterior vertebral body wedging in the mid and inferior thoracic spine. IMPRESSION: No definite focal pulmonary consolidation. There is cardiomegaly. Dictated by Roni Joseph MD @ 04/17/2024 8:47:33 PM (Electronically Signed)
[2024-04-17 20:23] LABS: Basophils Absolute Auto 0.02 K/uL (0.00-0.30); Basophils Percent Auto 0.3 % (0.0-3.0); Eosinophils Absolute Auto 0.13 K/uL (0.00-0.50); Eosinophils Percent Auto 1.6 % (0.0-7.0); Hematocrit 43.2 % (37.0-53.0); Hemoglobin* 14.4 gm/dL (13.5-17.5); Lymphocytes Absolute Auto 2.98 K/uL (0.90-2.90); Lymphocytes Percent Auto 37.6 % (20-44); Mean Corpuscular HGB Conc 33 gm/dL (32-36); Mean Corpuscular Hemoglobin 33 pg (26-34); Mean Corpuscular Volume 100 fL (80-100); Neutrophils Absolute Auto 4.09 K/uL (1.7-7.0); Neutrophils Percent Auto 51.5 % (42.0-72.0); Platelet Count* 137 K/uL (140-440); RDW Coefficient of Variation % 13.2 % (11.5-15.5); Red Blood Count 4.31 m/uL (4.30-5.90); White Blood Count* 7.93 K/uL (4.50-11.00)
[2024-04-17] MEDS: ASPIRIN 81 MG TAB.CHEW 162 MG PO (20:25)
[2024-04-17] MEDS: METOPROLOL TARTRATE 50 MG TABLET PO (20:26)
[2024-04-17 20:34] LABS: Slide Review Reflex No
[2024-04-17 20:38] LABS: Chloride* 107 mmol/L (96-114); Potassium* 4.8 mmol/L (3.6-5.1); Sodium* 139 mmol/L (135-149)
[2024-04-17 20:41] LABS: Anion Gap 10 mEq/L (7-15); Blood Urea Nitrogen* 25 mg/dL (7-30); Calcium* 9.4 mg/dL (8.4-10.6); Carbon Dioxide* 22 mmol/L (20-32); Creatinine* 0.9 mg/dL (0.5-1.5); Est. Creatinine Clearance* 79.08; Estimated Glomerular Filt Rate 97 ml/min; Glucose* 135 mg/dL (60-115)
--- OUTSIDE RECORDS SUMMARY | 2024-04-17 20:43 | XMS_ITS | Clinical Summary ---
Author Organization [place] Address [facility] 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 Gender Identity Not on file Sexual Orientation [...] BLOOD ORDERABLES Fin al Result [facility] [place] Core Lab [address] [facility] J [facility], Room 3-[address] [place] [address], [facility] [phone] * ALT (2022 7:45 AM CDT) ALT 48 10 - 50 U/L 2022 8:21 AM CDT LABORATORY Blood STRUCTURE OF LEFT UPPER LIMB / Unknown Venipuncture / Unknown 2022 7:45 AM CDT 2022 7:50 AM CDT Kodak Rome MD LAB - BLOOD ORDERABLES Fin al Result LABORATORY [facility] [address] Lab (1st floor, no room number) [place] [address], [facility] [phone] * (ABNORMAL) Basic metabolic panel (2022 7:45 [...] BLOOD ORDERABLES Fin al Result RH LABORATORY [facility] [address] Lab (1st floor, no room number) [place] [address] [phone] * CBC with platelets (11/02/2021 6:12 AM [...] ORDERABLES Fin al Result Performing Organization Address City/[facility]/ZIP Co de Phone Number [facility] Lab [address] Lab (1st floor, no room number) [place] [address], [facility] [phone] * (ABNORMAL) TSH with free T4 reflex (11/01/2021 3:17 PM CDT) TSH 4.29(H) 0.40 - 4.00 mU/L 11/01/2021 4:22 PM CDT RH LABORATORY Blood STRUCTURE OF RIGHT UPPER LIMB / Unknown Venipuncture / Unknown 11/01/2021 3:17 PM CDT 11/01/2021 3:23 PM CDT Epifanio Qiu MD LAB - BLOOD ORDERABLES Fin al Result Performing Organization Address [facility]/ZIP Co de Phone Number [facility] Lab [address] Lab (1st floor, no room number) [place] [address], [facility] [phone] from Last 3 Months or Most Recently Relevant to Health Maintenance Insurance [employer] [place] Advance Directives For more information, please contact: [phone] * Full Code (Latest Code Status on File) Date Activated Date Inactivated Comments 11/01/2021 9:01 PM 11/02/2021 2:08 PM All basic an d advanced life-sustaining interventions are performed as appropriate Question Answer Comments Code status determined by: Discussion with wendy nt/ legal decision maker Care Teams Grizzly Worker Relationship Specialty Start Date End Date [facility], [address] [id number] PCP - General 11/01/21
--- OUTSIDE RECORDS SUMMARY | 2024-04-17 20:43 | XMS_ITS | Referral Summary ---
Author Organization [place] Address [facility] 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 Gender Identity Not on file Sexual Orientation [...] - BLOOD ORDERABLES Fin al Result LABORATORY [facility] [place] Core Lab [address] [facility] J Building, Room 3[address] [place] [address], [place] [phone] * ALT (2022 7:45 AM CDT) ALT 48 10 - 50 U/L 2022 8:21 AM CDT LABORATORY Blood STRUCTURE OF LEFT UPPER LIMB / Unknown Venipuncture / Unknown 2022 7:45 AM CDT 2022 7:50 AM CDT Kodak Rome MD LAB - BLOOD ORDERABLES Fin al Result LABORATORY [facility] Acute Care Lab [address] Lab (1st floor, no room number) [place] [address], [place] [phone] * (ABNORMAL) Basic metabolic panel (2022 7:45 [...] BLOOD ORDERABLES Fin al Result RH LABORATORY [facility] Acute Care Lab [address] Lab (1st floor, no room number) [place] [address], [facility] [phone] * CBC with platelets (11/02/2021 6:12 AM [...] LAB - BLOOD ORDERABLES Fin al Result [facility] Acute Care Lab [address] Lab (1st floor, no room number) [place] [address], [facility] [phone] * (ABNORMAL) TSH with free T4 reflex (11/01/2021 3:17 PM CDT) TSH 4.29(H) 0.40 - 4.00 mU/L 11/01/2021 4:22 PM CDT RH LABORATORY Blood STRUCTURE OF RIGHT UPPER LIMB / Unknown Venipuncture / Unknown 11/01/2021 3:17 PM CDT 11/01/2021 3:23 PM CDT Epifanio Qiu MD LAB - BLOOD ORDERABLES Fin al Result Performing Organization Address City/[facility]/ZIP Co de Phone Number [facility] Lab [address] Lab (1st floor, no room number) [place] [address], [facility] [phone] from Last 3 Months or Most Recently Relevant to Health Maintenance Insurance [facility] Advance Directives For more information, please contact: [phone] * Full Code (Latest Code Status on File) Date Activated Date Inactivated Comments 11/01/2021 9:01 PM 11/02/2021 2:08 PM All basic an d advanced life-sustaining interventions are performed as appropriate Question Answer Comments Code status determined by: Discussion with wendy nt/ legal decision maker Care Teams Gun Striper Relationship Specialty Start Date End Date [facility], [address] [address] PCP - General 11/01/21
--- OUTSIDE RECORDS SUMMARY | 2024-04-17 20:43 | XMS_ITS | Encounter Summary ---
Author Organization [place] Address [facility]0 [facility] [place] [address] Care Team Providers Care Capsule Maker Name Role Phone Clinic, 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 rome Pharmacy: [id number] Date medication is needed: 12/25/2023 Action Taken: Other: cardiology Travel Screening: Not Applicable Thank you! [facility] Date of Service: documented in this encounter Plan of Treatment Not on file documented as of this encounter Visit Diagnoses Not on filedocumented in this encounter Care Teams Capsule Maker Relationship Specialty Start Date End Date [facility], [address] [address] PCP - General 11/01/21 Kodak Rome MD [address] [place] [address] Assigned Heart and Vascular Provider 12/09/21 03/03/24 documented as of this encounter
--- OUTSIDE RECORDS SUMMARY | 2024-04-17 20:43 | XMS_ITS | Encounter Summary ---
Author Organization [place] Address [facility] [place] [address] Care Team Providers Care Geoduck Diver Name Role Phone Clinic, [facility] Primary Care Provider Reason for Visit * Reason Onset Date Comments Refill Request 03/31/2024 Xarelto Encounter Details Date Type Department Care Team (Late st Contact Info) Description 03/31/2024 Telephone [facility] [address] [place] [address] Kira Vyas, RN Refill Request [...] on file Legal Sex Male 3:26 AM BARN MANAGER Gender Identity Not on file Sexual Orientation Not on file documented as of this encounter Miscellaneous Notes * Telephone Encounter - Kira Vyas RN - 04/02/2024 10:42 AM CST Patient has not responded to telephone calls, mychart not enabled. Letter sent. No additional refills without follow up. MANAGER * Telephone Encounter - Natalie Engel RN - 03/31/2024 4:16 PM BARN MANAGER Patient called a second time and VM left to inform him that xeralto has been refilled for 1 month with 1 refill and that he will need a follow up with Cardiology or [facility] for ongoing prescriptions. Patient asked to please return call to team 2 nurse line to confirm he has received messages. MANAGER * Telephone Encounter - Kira Vyas RN [...] refills and need for cardiology follow up. MANAGER * Telephone Encounter - Kira Vyas RN - 03/31/2024 11:10 AM CST [facility] Cardiology Refill Guideline reviewed. Medication does not meet criteria for refill dueto overdue for follow up, no responses to outreach attempts. Messaged to providers team for furtherreview. MANAGER documented in this encounter Plan of Treatment Not on file documented as of this encounter Visit Diagnoses Diagnosis New onset atrial fibrillation (H) Atrial fibrillation documented in this encounter Care Teams Geoduck Diver Relationship Specialty [place] [address] PCP - General 11/01/21 documented as of this encounter
--- OUTSIDE RECORDS SUMMARY | 2024-04-17 20:43 | XMS_ITS | Clinical Summary ---
Author Organization [employer] [facility] [place], [place] [address] Care Team Providers Care Acute Dialysis Registered Nurse Name Role Phone None Primary Care Provider [...] Type Department Care Team Description 04/15/2024 Refill [facility] [address] [place] [address] Josee Teague, Refill Request (Atorvastatin, Lisinopril, Diltiazem) [...] Comments Blood Pressure 162/95 04/09/2023 2:06 PM COIN MACHINE MECHANIC recheck BP Pulse 81 04/09/2023 2:06 PM COIN MACHINE MECHANIC Temperature 36.7 C (98 F) 04/24/2021 4:11 PM COIN MACHINE MECHANIC Respiratory Rate 16 04/24/2021 4:11 PM COIN MACHINE MECHANIC Oxygen Saturation 96% 04/09/2023 2:0 6 PM COIN MACHINE MECHANIC Inhaled Oxygen Concentration - - Weight 108.8 kg (239 lb 12. 8 oz) 04/09/2023 2:03 PM COIN MACHINE MECHANIC Height 175 cm (5' 8.9) 02/01/2022 3:54 PM CDT Body Mass Index 35.52 02/01/2022 3:54 PM CDT Plan of Treatment Upcoming Encounters Date Type Department Care Team (Late st Contact Info) Description 04/28/2024 3:10 PM COIN MACHINE MECHANIC Office Visit [facility] [address] [place] [address] Josee Teague DO [address] [place] [address] Health Maintenance Due Date Last Done Comments [...] LDL CHOLESTEROL,DIRECT (11/29/2021 3:40 PM CDT) Pathologist [facility] LDL CHOLESTEROL,DI RECT 54 mg/dL 11/30/2021 4:47 PM CDT [facility] PROVIDER ORDERED STATUS RANDOM 11/30/2021 4:47 PM CDT [facility] Blood BLOOD SPECIMEN / Unknown Venipuncture / Unknown 11/29/2021 3:40 PM CDT 11/29/2021 3:40 PM CDT Narrative [facility] - 11/30/2021 4:47 PM CDT RISK CATEGORY LDL GOAL (mg/dL) Vascular disease and/or diabetes (<100) Multiple (2+) risk factors (<130) 0-1 risk factor (<160) Josee Teague DO CHEMISTRY [facility] [address] [place] [address], * ANTI HCV [15288.2] (01/12/2014 4:15 PM CDT) Pathologist [facility] HEPATITIS C ANTIBODY Non-Reacti ve Non-Reacti ve 01/13/2014 1:19 PM CDT [facility] Blood specimen (specimen) BLOOD SPECIMEN / Unknown Venipuncture / Unknown 01/12/2014 4:15 PM CDT 01/12/2014 4:15 PM CDT Narrative [facility] - 01/13/2014 1:19 PM CDT Antibodies to HCV not detected; does not exclude the possibility of exposure to HCV. Josee Teague DO SEND OUTS [facility] [address] [place] [address], [place] from Last 3 Months or Most Recently Relevant to Health Maintenance Care Teams Acute Dialysis Registered Nurse Relationship Specialty Start Date End Date None . PCP - General 03/24/24
[2024-04-17 20:52] LABS: Troponin I* 0.03 ng/mL (0.01-0.04)
[2024-04-17 20:53] LABS: NT Pro B Type NatriureticPept* 2280 pg/mL
[2024-04-17 22:44] VITALS: BP 145/100; PULSE 79; RESP 16; TEMP 36.7; O2SAT 95
[2024-05-04 16:57] LABS: Troponin, Point-of-Care* 0.01 ng/ml (0.01-0.04)
== END 2024-04-17 23:33 | disposition home or self-care (01) ==
PROVIDERS: Emergency Provider Emergency Medicine; PCP Family Medicine
DX: R07.9 Chest pain, unspecified (principal); R06.00 Dyspnea, unspecified; I48.91 Unspecified atrial fibrillation
CPT/HCPCS: 36415; 71046; 80048; 83880; 84484; 85025; 85379; 99284; A9270

== ENCOUNTER 2024-10-23 14:26 | Emergency (ER) | payer OTHER, SELFPAY ==
--- OUTSIDE RECORDS SUMMARY | 2024-10-23 14:28 | XMS_ITS | Clinical Summary ---
Author Organization [place] Address [facility] [place] [address] Care Team Providers Care Chopper Operator Name Role Phone Clinic, [facility] Primary Care Provider Allergies No known active [...] further refills 30 tablet 1 024 Active Active Problems Problem Noted Date Diagnosed [...] on file Legal Sex Male 3:26 AM TITLE SPECIALIST Gender Identity Not on file Sexual Orientation [...] HF ACTION PLAN 1961 sDNA (Cologuard) 1961 COLONOSCOPY 08/11/1971 COLORECTAL CANCER SCREENING 08/11/1971 HIV SCREENING 1976 HEPATITIS C SCREENING 08/11/1979 PNEUMOCOCCAL VACCINE 50+ YEARS (1 of 2 - PCV) 1980 ZOSTER VACCINE (1 of 2) 08/11/2011 RSV VACCINE (1 - Risk 60-74 years 1-dose series) 2021 CBC 11/02/2022 11/02/2021, 11/01/2021 YEARLY PREVENTIVE VISIT 02/01/2023 02/02/20, 10/03/2020 BMP 02/09/2023 2022, 11/01/2021, 12/06/2005 ALT 08/11/2023 2022, 12/06/2005 LIPID 08/11/2023 2022 COVID-19 VACCINE (3 - 2023-2 5 season) 2024 06/20/2021, 10/03/2020 PHQ-2 (once per calendar year) 2024 08/31/2022 INFLUENZA VACCINE (Season Ended) 2025 02/01/2022, 02/19/2018, 01/12/2014 DIABETES SCREENING 2025 2022, 11/01/2021, 12/06/2005 DTAP/TDAP/TD VACCINE (3 - Td or Tdap) 02/02/2032 02/01/2022, 10/15/2011 TSH W/FREE T4 REFLEX Completed 11/01/2021, 11/01/2021 HPV VACCINE Aged Out No longer eligi ble based on patient's age to complete this topic MENINGITIS VACCINE Aged Out No longer eligible based on patient's age to complete [...] Greater than or equal to 220 mg/dL us Kodak Rome MD LAB - BLOOD ORDERABLES Fin al Result [facility] [place] Core Lab [address] [facility] J [facility], [address] [place] [address], [facility] [phone] * ALT (2022 7:45 AM CDT) ALT 48 10 - 50 U/L 2022 8:21 AM CDT RH LABORATORY Blood STRUCTURE OF LEFT UPPER LIMB / Unknown Venipuncture / Unknown 2022 7:45 AM CDT 2022 7:50 AM CDT Kodak Rome MD LAB - BLOOD ORDERABLES Fin al Result LABORATORY [facility] Acute Care Lab [address] Lab (1st floor, no room number) [place] [address], [facility] [phone] * (ABNORMAL) Basic metabolic panel (2022 7:45 [...] - 23.0 mg/dL 2022 8:21 AM CDT LABORATORY Creatinine 0.83 0.67 - 1.17 mg/dL 2022 8:21 AM CDT LABORATORY Calcium 9.6 8.8 - 10.2 mg/dL 2022 8:21 AM CDT LABORATORY Glucose 122(H) 70 - 99 mg/dL 2022 8:21 AM CDT LABORATORY GFR Estimate >90 >60 mL/min/1.7 3m2 2022 8:21 AM CDT LABORATORY Comment:eGFR calculated us2020 CKD-EPI equation. Blood STRUCTURE OF LEFT UPPER LIMB / Unknown Venipuncture / Unknown 2022 7:45 AM CDT 2022 7:50 AM CDT Kodak Rome MD LAB - BLOOD ORDERABLES Fin al Result RH LABORATORY [facility] Acute Care Lab [address] Lab (1st floor, no room number) [place] [address], [facility] [phone] * CBC with platelets (11/02/2021 6:12 AM CDT) [facility] WBC Count 6.0 4.0 - 11.0 10e3/uL [...] - BLOOD ORDERABLES Fin al Result LABORATORY [facility] Acute Care Lab [address] Lab (1st floor, no room number) [place] [address], [facility] [phone] * (ABNORMAL) TSH with free T4 reflex (11/01/2021 3:17 PM CDT) TSH 4.29(H) 0.40 - 4.00 mU/L 11/01/2021 4:22 PM CDT RH LABORATORY Blood STRUCTURE OF RIGHT UPPER LIMB / Unknown Venipuncture / Unknown 11/01/2021 3:17 PM CDT 11/01/2021 3:23 PM CDT us Epifanio Qiu MD LAB - BLOOD ORDERABLES Fin al Result RH LABORATORY [facility] Acute Care Lab [address] Lab (1st floor, no room number) [place] [address], [facility] [phone] from Last 3 Months or Most Recently Relevant to Health Maintenance Insurance [facility] Advance Directives For more information, please contact: [phone] * Full Code (Latest Code Status on File) Date Activated Date Inactivated Comments 11/01/2021 9:01 PM 11/02/2021 2:08 PM All basic an d advanced life-sustaining interventions are performed as appropriate Question Answer Comments Code status determined by: Discussion with wendy nt/ legal decision maker Care Teams Chopper Operator Relationship Specialty Start Date End Date Clinic, [address] [address] PCP - General 11/01/21
[2024-10-23 14:29] VITALS: BP 163/81; PULSE 106; RESP 18; TEMP 36.4; O2SAT 94; BMI 34.4
--- OUTSIDE RECORDS SUMMARY | 2024-10-23 14:29 | XMS_ITS | Clinical Summary ---
Author Organization [facility] Address [address] [place] [id number] Care Team Providers Care [employer] Name Role Phone Josee Teague DO Primary Care Provider [phone] Allergies No known active allergies Medications diclofenac topical (VOLTAREN) 1 % gelIndications:Art hralgia, unspecified joint Apply as instructed to affected area by topical route twice daily. 100 g 4 Active rivaroxaban (XARELTO) 20 mg tabletIndications: Persistent atrial fibrillation (HC) Take 1 Tablet (20 mg) by mouth once daily with evening meal. 90 Tablet 3 4 Active lisinopriL (PRINIVIL; ZESTRIL) 40 mg tabletIndications: Hypertension, unspecified type Take 1 Tablet (40 mg) by mouth once daily. 90 Tablet 3 4 Active atorvastatin (LIPITOR) 20 mg tabletIndications: Hyperlipidemia, unspecified hyperlipidemia type Take 1 Tablet (20 mg) by mouth once daily with evening meal. 90 Tablet 3 4 Active furosemide (LASIX) 20 mg tabletIndications: Chronic systolic CHF (congestive heart failure) (HC) Take 1 Tablet (20 mg) by mouth once daily in the morning. 90 Tablet 3 4 Active triamcinolone (ARISTOCORT; KENALOG) 0.1 % creamIndications:P soriasis Apply to scalp psoriasis 1-2 times a day as needed 80 g 2 4 Active lidocaine 5 % topical patchIndications:A cute pain of right shoulder Apply on dry, clean, hairless skin. Apply 1 patch to painful area of skin for up to to 12 hours within 24 hour period. 30 Patch 11 5 Active metoprolol succinate (Toprol XL) 100 mg Sustained-Release tabletIndications: Persistent atrial fibrillation (HC) Take 1 Tablet (100 mg) by mouth once daily. 90 Tablet 3 5 Active Active Problems Problem Noted Date Diagnosed Date Ascending aorta dilation 06/11/2024 Overview (06/11/2024): Echocardiogram 05/2024 = 4.1, repeat 1 year Persistent atrial fibrillation 11/29/2021 Decreased cardiac ejection fraction 11/29/2021 Overview (02/04/2022): EF 50-55% 2021 Alcohol abuse 01/27/2013 Elevated liver enzymes 01/27/2013 HTN (hypertension) 10/15/2011 Immunizations Immunization Administration Dates Next Due COVID-19 vaccine ([employer]-J[employer]J) PF, MDV INFLUENZA, IIV3 PF (AGE >= 6 MO) 04/28/2024 Influenza, IIV4 02/01/2022,02/19/2018,01/12/2014 Pneumococcal Conj 20-valent (Prevnar 20) 024 Td (Age >=7 Years) 02/01/2022 Tdap 10/15/2011 [...] Yes Alcohol Use Standard Drinks/Week Comments Yes 12 (1 standard drink = 0.6 oz pu re alcohol) PHQ-2 Answer Date Recorded PHQ-2 TOTAL SCORE 0 04/28/2024 Alcohol Use Answer Date Recorded How often [...] at Not on file Legal Sex Male 5:40 AM TUB CHUCKER Gender Identity Not on file Sexual Orientation Not on file 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 Not on file Not on file Not on file Obstetrics History Last Filed Vital Signs Vital Sign Reading Time Taken Comments Blood Pressure 120/68 07/02/2024 3:43 PM TUB CHUCKER Pulse 84 07/02/2024 3:15 PM TUB CHUCKER Temperature 36.7 C (98 F) 04/24/2021 4:11 PM TUB CHUCKER Respiratory Rate 16 04/24/2021 4:11 PM TUB CHUCKER Oxygen Saturation 94% 07/02/2024 3:15 PM TUB CHUCKER Inhaled Oxygen Concentration - - Weight 109.3 kg (241 lb) 07/02/2024 3:15 PM TUB CHUCKER Height 173.5 cm (5' 8.31) 04/28/2024 3:04 PM CS T Body Mass Index 36.32 04/28/2024 3:04 PM TUB CHUCKER Plan of Treatment Health Maintenance Due Date Last Done Comments Colonoscopy through age 75 2006 Zoster (shingles) series for age 50+ (1 of 2) 08/11/2011 COVID-19 vaccine series ( season) 2024 06/20/2021, 10/03/2020 BMI (ht and wt on same day) for age 18+ 04/28/2025 04/28/2024, 11/29/2021, 04/24/2021, Additional history exists Depression screening for age 12+ 04/28/2025 04/28/2024, 11/29/2021, 10/03/2020, Additional history exists Lipids for age 45-75 04/28/2029 04/28/2024, 11/29/2021, 10/03/2020, Additional history exists Tetanus booster 02/02/2032 02/01/2022, 10/15/2011 RSV vaccine for adults or (1 - 1-dose 75+ series) 2036 Tdap Completed 10/15/2011 Hepatitis C screening for age 18-79 Completed 01/12/2014 HIV for age 15-65 Completed 04/28/2024 Influenza Vaccine Completed 04/28/2024, , 02/19/2018, Additional history exists Pneumococcal series for age 50+ Completed 04/28/2024 Hepatitis B series for 19+ Aged Out N o longer eligible based on patient's age to complete this topic Goals Goal Patient Goal Type Associated Problems Recent Progress Patient-Stated? Author BLOOD PRESSURE - MAINTAINS BP less than 140/90 Blood Pressure Kia Porter MD Procedures Procedure Name Priority Date/Time Associated Diagnosis Comments ANTI HIV 1/2 Routine 04/28/2024 4:38 PM TUB CHUCKER Screening for HIV (human immunodeficiency virus) LIPID PANEL W REFLEX MEASURED LDL Routine 04/28/2024 4:38 PM TUB CHUCKER Hyperlipidemia, unspecified hyperlipidemia type ANTI HCV Routine 01/12/2014 4:15 PM CDT Need for hepatitis C screening test from Last 3 Months or Most Recently Relevant to Health Maintenance Results * (ABNORMAL) LIPID PANEL W REFLEX MEASURED LDL (04/28/2024 4:38 PM TUB CHUCKER) CHOLESTEROL, TOTAL 127 <200 mg/dL [facility] HDL CHOLESTEROL 38(L) > OR = 40 mg/dL [facility] TRIGLYCERIDES 291(H) <150 mg/dL [facility] Comment: If a non-fasting specimen was collected, consider repeat triglyceride testing on a fasting specimen if clinically indicated. Apolinar et al. J. of Clin. Lipidol. 2015;9:129-169. LDL-CHOLESTEROL 55 mg/dL (calc) [facility] Comment: Reference range: <100 Desirable range <100 mg/dL for primary prevention; <70 mg/dL for patients with CHD or diabetic patients with > or = 2 CHD risk factors. LDL-C is now calculated using the Óscar-Valentine calculation, which is a validated novel method providing better accuracy than the Friedewald equation in the estimation of LDL-C. Óscar PARKINSON et al. JW. 2013;310(19): 8569-2865 (http://education.[employer]/faq/GFN201) CHOL/HDLC RATIO 3.3 <5.0 (calc) [facility] NON HDL CHOLESTEROL 89 <130 mg/dL (calc) [facility] Comment: For patients with diabetes plus 1 major ASCVD risk factor, treating to a non-HDL-C goal of <100 mg/dL (LDL-C of <70 mg/dL) is considered a therapeutic option. Blood BLOOD SPECIMEN / Unknown 04/28/2024 4:38 PM TUB CHUCKER 04/28/2024 4:39 PM TUB CHUCKER Josee Teague DO CHEMISTRY Final Resu lt Performing Organization Address [facility] de Phone Number [facility] [address] [place] [address], [employer] [address] [place] [address] * ANTI HIV 1/2 [27689.0] (04/28/2024 4:38 PM TUB CHUCKER) HIV AG/AB, 4TH GEN NON-REACT LILIA NON-REACT LILIA [employer] Comment: HIV-1 antigen and HIV-1/HIV-2 antibodies were not detected. There is no laboratory evidence of HIV infection. PLEASE NOTE: This information has been disclosed to you from records whose confidentiality may be protected by state law. If your state requires such protection, then the state law prohibits you from making any further disclosure of the information without the specific written consent of the person to whom it pertains, or as otherwise permitted by law. A general authorization for the release of medical or other information is NOT sufficient for this purpose. For additional information please refer to http://education.[employer].mmCHANNEL/faq/OQD355 (This link is being provided for informational/ educational purposes only.) The performance of this assay has not been clinically validated in patients less than 2 years old. Blood BLOOD SPECIMEN / Unknown 04/28/2024 4:38 PM TUB CHUCKER 04/28/2024 4:39 PM TUB CHUCKER Josee Teague DO SEND OUTS Final Resu lt [facility] [address] [place] [address], [facility] [address] [place] [address] * ANTI HCV [39883.2] (01/12/2014 4:15 PM CDT) HEPATITIS C ANTIBODY Non-Reacti ve Non-Reacti ve 01/13/2014 1:19 PM CDT [facility] Blood specimen (specimen) BLOOD SPECIMEN / Unknown Venipuncture / Unknown 01/12/2014 4:15 PM CDT 01/12/2014 4:15 PM CDT Narrative [facility] - 01/13/2014 1:19 PM CDT Antibodies to HCV not detected; does not exclude the possibility of exposure to HCV. Josee Teague DO SEND OUTS Final Resu lt Performing Organization Address City/State/[facility] Co de Phone Number [facility] [address] [place] [address], [place] from Last 3 Months or Most Recently Relevant to Health Maintenance Insurance [facility] [employer] [facility] [employer] * Guarantor: [employer] Account Type Relation to Patient Date of Phone Billing Address [facility] [address] [place] [address] Care Teams As[employer] Relationship Specialty Start Date End Date Josee Teague DO [address] [place], [place] [phone] PCP - General Family Practice 04/27/24
--- NOTE | 2024-10-23 14:49 | CRLHL7_ITS ---
For Patients: As a result of the Cures Act, medical imaging exams and procedure reports are released immediately into your electronic medical record. You may view this report before your referring provider. If you have questions, please contact your health care provider. Indication: Fall with left sided injury Technique: Grayscale and color Doppler ultrasound of the left lateral calf soft tissues performed. Comparison: None Findings: Complex hypoechoic fluid collection within the left lateral lower calf soft tissues which measures 11.9 x 2.0 x 6.5 cm. No internal blood flow. No shadowing lesion. Impression: Subcutaneous hematoma measures 11.9 x 2.0 x 6.5 cm. Dictated by Pb Cat MD @ 10/25/2024 4:55:36 PM (Electronically Signed)
--- NOTE | 2024-10-23 14:49 | CRLHL7_ITS ---
For Patients: As a result of the Century Cures Act, medical imaging exams and procedure reports are released immediately into your electronic medical record. You may view this report before your referring provider. If you have questions, please contact your health care provider. INDICATION: Trauma, fell out of truck. TECHNIQUE: CT chest, abdomen, and pelvis acquired without contrast. COMPARISON: CT abdomen/pelvis dated 01/21/2020. FINDINGS: CHEST: Lungs and pleura: No evidence of pulmonary contusion, laceration, or pneumothorax. Heart and vessels: Mild cardiomegaly. No pericardial effusion. Atherosclerotic coronary artery calcifications. Thyroid and lower neck: No suspicious thyroid nodule. Mediastinum/zoltan: No lymphadenopathy. Chest wall: No axillary lymphadenopathy. ABDOMEN/PELVIS: Evaluation of solid organs is limited secondary to lack of IV contrast administration. Liver: Diffuse hepatic steatosis. Hepatomegaly. Gallbladder and bile ducts: Cholelithiasis. No secondary signs of acute cholecystitis. Pancreas: Unremarkable. Spleen: Unremarkable. Adrenal glands: Unremarkable. Kidneys: No renal calculi or hydronephrosis bilaterally. Retroperitoneum: No lymphadenopathy. Bowel and mesentery: Bowel is not obstructed. No significant ascites, no pneumoperitoneum. Scattered colonic diverticulosis, without evidence of acute diverticulitis. Normal appendix. No large mesenteric hematoma. Bladder: Unremarkable for degree of distention. Reproductive organs: No significant prostatomegaly. Pelvic lymph nodes: No lymphadenopathy. Vessels: Scattered atherosclerotic calcifications. Abdominal wall: Small subcutaneous contusion overlying the left flank. Bones: Multilevel degenerative changes of the spine. Bones are osteopenic. Healed fracture deformity of the sternum and multiple right ribs noted. No acute displaced rib fracture identified. IMPRESSION: 1. Small subcutaneous contusion overlying the left flank. 2. No evidence of acute solid organ injury within the chest, abdomen, or pelvis, within limitations of unenhanced study. 3. Mild cardiomegaly. Please note that all CT scans at this facility use dose modulation, iterative reconstruction, and/or weight-based dosing when appropriate to reduce radiation dose to as low as reasonably achievable. Dictated by Rochelle Aponte MD @ 10/23/2024 4:03:49 PM (Electronically Signed)
--- NOTE | 2024-10-23 15:21 | ED.FALL ---
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 He has moderate pain and swelling of the lateral calf on the left as well as severe pain and bruising in the midline both in the chest wall and abdomen. He is concerned that he may have broken a rib or worse. Patient has been trying to treat himself at home for last several hours as the accident occurred approximately 5 hours ago. He has had no hemoptysis no fevers no chills no night sweats no cough no shortness of breath. Pain is 8/10 and sharp. He otherwise is in his usual state of health and has no skin breakdown. Related Data Home Medications ?Medication ?Instructions ?Recorded ?Confirmed atorvastatin 20 mg tablet 20 mg PO DAILY 04/17/24 10/23/24 diltiazem HCl 120 mg 120 mg PO BID 04/17/24 10/23/24 capsule,extended release 24 hr, controlled furosemide 20 mg tablet 20 mg PO DAILY 04/17/24 10/23/24 lisinopril 40 mg tablet 40 mg PO DAILY 04/17/24 10/23/24 metoprolol succinate 100 mg 100 mg PO BID 04/17/24 10/23/24 tablet,extended release 24 hr rivaroxaban 20 mg tablet (Xarelto) 20 mg PO QPM 04/17/24 04/17/24 Previous Rx's ?Medication ?Instructions ?Recorded furosemide 20 mg tablet 20 mg PO DAILY #30 tabs 04/17/24 lisinopril 40 mg tablet 40 mg PO DAILY #30 tabs 04/17/24 metoprolol succinate 100 mg 100 mg PO DAILY #30 tabs 04/17/24 tablet,extended release 24 hr rivaroxaban 20 mg tablet (Xarelto) 20 mg PO DAILY #30 tabs 04/17/24 Allergies Allergy/AdvReac Type Severity Reaction Status Date / Time No Known Drug Allergies Allergy Verified 10/23/24 14:35 Review of Systems Status of ROS: Reports: 10 or more systems reviewed and unremarkable except as noted in History and below [facility] Social History Smoking Status: Never smoker Do you use any of these nicotine containing products: None Second hand tobacco smoke exposure: No How often do you have a drink containing alcohol: 2-4 times a month AUDIT-C Alcohol total score: 2 Non-prescribed substance use: denies use service: No Exam Narrative: Exam Narrative: EXAM GENERAL: Patient appears moderate distress. EYES: No scleral icterus. LYMPH: No supraclavicular or cervical lymphadenopathy. SKIN: Visible skin seen during exam normal or with benign process only. EXT: No dependent lower extremity pedal edema. HEART: Regular rate and rhythm with no murmurs, rubs, or gallops. LUNGS: Clear to auscultation bilaterally with no crackles or wheezes. Chest and abdominal wall exam shows tenderness in the mid axillary line on the left with bruising noted in the lateral abdomen on the left. ABD: Soft, non tender, non distended. PSYCH: Good eye contact, speech is not pressured. Const: Vital Signs, click to edit/add: Vital Signs - 24 hr 10/23/24 14:29 Temperature 97.6 F Pulse Rate [Right Pulse Oximeter] 106 H Respiratory Rate 18 Blood Pressure [Le ft Upper Arm] 163/81 H Pulse Oximetry 94 Oxygen Delivery Me thod Room Air Course Course ED Course: Patient seen examined. Ultrasound the left lower extremities or CT chest abdomen pelvis pending. Vital Signs Vital signs: Initial Vital Signs Temperature 97.6 F 10/23/24 14:29 Temperature Source Temporal Artery Scan 10/23/24 14:29 Pulse Rate 106 H 10/23/24 14:29 Pulse Rhythm Regular 10/23/24 14:29 Pulse Strength 3+ Normal 10/23/24 14:29 Respiratory Rate 18 10/23/24 14:29 Blood Pressure 163/81 H 10/23/24 14:29 Blood Pressure Mean 108 H 10/23/24 14:29 Blood Pressure Position Sitting 10/23/24 14:29 Pulse Oximetry 94 10/23/24 14:29 Oxygen Delivery Method Room Air 10/23/24 14:29 Vital Signs Temperature 97.6 F 10/23/24 14:29 Pulse Rate 106 H 10/23/24 14:29 Respiratory Rate 18 10/23/24 14:29 Blood Pressure 163/81 H 10/23/24 14:29 Pulse Oximetry 94 10/23/24 14:29 Oxygen Delivery Method Room Air 10/23/24 14:29 Temperature 97.6 F 10/23/24 14:29 Pulse Rate 106 H 10/23/24 14:29 Respiratory Rate 18 10/23/24 14:29 Blood Pressure 163/81 H 10/23/24 14:29 Pulse Oximetry 94 10/23/24 14:29 Oxygen Delivery Method Room Air 10/23/24 14:29 MDM - Fall MDM Narrative Medical decision making narrative: Patient presents after a fall. He contused the left-sided chest the left lateral calf. I did do a CT of his chest abdomen pelvis and there was no evidence of acute injuries. Unfortunately his left calf is swollen and he has an 11 x 6 x 2 cm hematoma. There does not appear to be compartment syndrome or impaired circulation. He is neurologically intact. Did review the case with General surgery they do recommend holding his anticoagulation over the weekend and Sukhi wrap as well as leg elevation. He will follow-up with his primary physician in the next 3-4 days to potentially reimage and or resume his rivaroxaban. I do not believe lab work would be helpful for us at this time. Discharge Plan Discharge Clinical Impression: Hematoma Patient Disposition: Home, Self-Care Condition: Stable Instructions: Hematoma (ED) Additional Instructions: On keep the lower extremity wrapped as demonstrated. Hold rivaroxaban/Xarelto until early next week. Follow-up with your doctor on Saturday to discuss resuming anticoagulation and possible repeat imaging of lower extremity hematoma. Activity Level: No Restrictions Discharge Diet: Regular Prescriptions: No Action atorvastatin 20 mg tablet 20 mg PO DAILY metoprolol succinate 100 mg tablet extended release 24 hr 100 mg PO BID diltiazem HCl 120 mg capsule,ext.rel 24h degradable 120 mg PO BID furosemide 20 mg tablet 20 mg PO DAILY lisinopril 40 mg tablet 40 mg PO DAILY Xarelto 20 mg tablet 20 mg PO QPM Xarelto 20 mg tablet 20 mg PO DAILY Qty: 30 2RF Rx Instructions: must administer with evening meal metoprolol succinate 100 mg tablet extended release 24 hr 100 mg PO DAILY Qty: 30 2RF furosemide 20 mg tablet 20 mg PO DAILY Qty: 30 2RF lisinopril 40 mg tablet 40 mg PO DAILY Qty: 30 2RF Follow Up/Referrals: Josee Teague DO [Primary Care Provider, Family Practice] Stand Alone Forms: Subtextth Info Instructions
== END 2024-10-23 16:53 | disposition home or self-care (01) ==
PROVIDERS: Emergency Provider Internal Medicine; PCP Family Medicine
DX: S20.212A Contusion of left front wall of thorax, initial encounter (principal); S30.1XXA Contusion of abdominal wall, initial encounter; S80.12XA Contusion of left lower leg, initial encounter; V66 Occupant of heavy transport vehicle injured in collision with other nonmotor vehicle; Y99.0 Civilian activity done for income or pay
CPT/HCPCS: 71250; 74176; 76882; 99283; 99284

== ENCOUNTER 2024-10-26 12:45 | Emergency (ER) | payer OTHER, SELFPAY ==
--- OUTSIDE RECORDS SUMMARY | 2024-10-26 12:48 | XMS_ITS | Clinical Summary ---
Author Organization [employer] [facility] Address [address] [place] [address] Care Team Providers Care Jewelry Bench Worker Name Role Phone Josee Teague DO Primary Care Provider [phone] Allergies No known active allergies Medications diclofenac [...] Encounters Date Type Department Care Team Description 10/23/2024 Orders Only [facility] HIM SERVICES Scanner 1 scan: (1-Ord) 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 Not on file Not on file Not on file Obstetrics History Last Filed Vital Signs Vital Sign Reading Time Taken Comments Blood Pressure 120/68 07/02/2024 3:43 PM AIRBORNE AND AIR DELIVERY SPECIALIST Pulse 84 07/02/2024 3:15 PM AIRBORNE AND AIR DELIVERY SPECIALIST Temperature 36.7 C (98 F) 04/24/2021 4:11 PM AIRBORNE AND AIR DELIVERY SPECIALIST Respiratory Rate 16 04/24/2021 4:11 PM AIRBORNE AND AIR DELIVERY SPECIALIST Oxygen Saturation 94% 07/02/2024 3:15 PM AIRBORNE AND AIR DELIVERY SPECIALIST Inhaled Oxygen Concentration - - Weight 109.3 kg (241 lb) 07/02/2024 3:15 PM AIRBORNE AND AIR DELIVERY SPECIALIST Height 173.5 cm (5' 8.31) 04/28/2024 3:04 PM CS T Body Mass Index 36.32 04/28/2024 3:04 PM AIRBORNE AND AIR DELIVERY SPECIALIST Plan of Treatment Health Maintenance Due Date [...] Procedure Name Priority Date/Time Associated Diagnosis Comments SCAN-CT INTERPRETATION 10/23/2024 12:00 AM CDT ANTI HIV 1/2 Routine 04/28/2024 4:38 PM AIRBORNE AND AIR DELIVERY SPECIALIST Screening for HIV (human immunodeficiency virus) LIPID PANEL W REFLEX MEASURED LDL Routine 04/28/2024 4:38 PM AIRBORNE AND AIR DELIVERY SPECIALIST Hyperlipidemia, unspecified hyperlipidemia type ANTI HCV Routine 01/12/2014 4:15 PM CDT Need for hepatitis C screening test from Last 3 Months or Most Recently Relevant to Health Maintenance Results * SCAN-CT INTERPRETATION (10/23/2024 12:00 AM CDT) Anatomical Region Laterality Modality Other us Scanner OTHER Final Result * (ABNORMAL) LIPID PANEL W REFLEX MEASURED LDL (04/28/2024 4:38 PM AIRBORNE AND AIR DELIVERY SPECIALIST) CHOLESTEROL, TOTAL 127 <200 mg/dL [facility] HDL CHOLESTEROL 38(L) > OR = 40 mg/dL [facility] TRIGLYCERIDES 291(H) <150 mg/dL [facility] Comment: If a non-fasting specimen was collected, consider repeat triglyceride testing on a fasting specimen if clinically indicated. Apolinar et al. J. of Clin. Lipidol. 2015;9:129-169. LDL-CHOLESTEROL 55 mg/dL (calc) [facility] Comment: Reference range: <100 Desirable range <100 mg/dL for primary prevention; <70 mg/dL for patients with CHD or diabetic patients with > or = 2 CHD risk factors. LDL-C is now calculated using the Any calculation, which is a validated novel method providing better accuracy than the Friedewald equation in the estimation of LDL-C. Óscar PARKINSON et al. JW. 2013;310(19): 2649-8089 (http://FIA Formula E.WordWatch/faq/NEW565) CHOL/HDLC RATIO 3.3 <5.0 (calc) [facility] NON HDL CHOLESTEROL 89 <130 mg/dL (calc) [facility] Comment: For patients with diabetes plus 1 major ASCVD risk factor, treating to a non-HDL-C goal of <100 mg/dL (LDL-C of <70 mg/dL) is considered a therapeutic option. Blood BLOOD SPECIMEN / Unknown 04/28/2024 4:38 PM AIRBORNE AND AIR DELIVERY SPECIALIST 04/28/2024 4:39 PM AIRBORNE AND AIR DELIVERY SPECIALIST Josee Teague DO CHEMISTRY Final Resu lt Sprout [facility] [address] [place] [address], [facility] [address] [place] [address] * ANTI HIV 1/2 [08515.0] (04/28/2024 4:38 PM AIRBORNE AND AIR DELIVERY SPECIALIST) HIV AG/AB, 4TH GEN NON-REACT LILIA NON-REACT LILIA [employer] [place] Comment: HIV-1 antigen and HIV-1/HIV-2 antibodies were [...] purpose. For additional information please refer to http://education.Novelo/faq/LGY185 (This link is being provided for informational/ educational purposes only.) The performance of this assay has not been clinically validated in patients less than 2 years old. Blood BLOOD SPECIMEN / Unknown 04/28/2024 4:38 PM AIRBORNE AND AIR DELIVERY SPECIALIST 04/28/2024 4:39 PM AIRBORNE AND AIR DELIVERY SPECIALIST [facility] Lindsey Daniel DO SEND OUTS Final Resu lt Performing Organization Address [facility] Co de Phone Number Spr[employer] [facility] [address] [place] [address], [facility] [address] [place] [address] * ANTI HCV [41486.2] (01/12/2014 4:15 PM CDT) HEPATITIS C ANTIBODY Non-Reacti ve Non-Reacti ve 01/13/2014 1:19 PM CDT [facility] Blood specimen (specimen) BLOOD SPECIMEN / Unknown Venipuncture / Unknown 01/12/2014 4:15 PM CDT 01/12/2014 4:15 PM CDT Narrative [facility] - 01/13/2014 1:19 PM CDT Antibodies to HCV not detected; does not exclude the possibility of exposure to HCV. [facility] Lindsey Ho DO SEND OUTS Final Resu Performing Organization Address City/[facility] Co de Phone Number [facility] [address] [place] [address], [place] from Last 3 Months or Most Recently Relevant to Health Maintenance Insurance [facility] [employer] [facility] [employer] * Guarantor: ANJALI [employer]ER[employer] Account Type Relation to Patient Date of Phone Billing Address [facility] [address] [place] [address] Care Teams Jewelry Bench Worker Relationship Specialty Start Date End Date Josee Teague DO [address] [place] [address] PCP - General Family Practice 04/27/24
--- OUTSIDE RECORDS SUMMARY | 2024-10-26 12:48 | XMS_ITS | Clinical Summary ---
Author Organization [place] Address [facility] 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 Gender Identity Not on file Sexual Orientation [...] BLOOD ORDERABLES Fin al Result [facility] [place] Core Lab [address] [facility] [address] [facility], [address] [place] [address], [facility] [phone] * ALT (2022 7:45 AM CDT) ALT 48 10 - 50 U/L 2022 8:21 AM CDT [facility] Blood STRUCTURE OF LEFT UPPER LIMB / Unknown Venipuncture / Unknown 2022 7:45 AM CDT 2022 7:50 AM CDT Kodak Rome MD LAB - BLOOD ORDERABLES Fin al Result LABORATORY [facility] Acute Care Lab [address] Lab (1st floor, no room number) [place] [address], [facility] [phone] * (ABNORMAL) Basic metabolic panel (2022 7:45 [...] BLOOD ORDERABLES Fin al Result [facility] Acute Care Lab [address] Lab (1st floor, no room number) [place] [address], [facility] [phone] * CBC with platelets (11/02/2021 6:12 AM CDT) [facility] WBC Count 6.0 4.0 - 11.0 10e3/uL [...] - BLOOD ORDERABLES Fin al Result LABORATORY [facility] Acute Care Lab [address] Lab (1st floor, no room number) [place] [address], [facility] [phone] * (ABNORMAL) TSH with free T4 reflex (11/01/2021 3:17 PM CDT) TSH 4.29(H) 0.40 - 4.00 mU/L 11/01/2021 4:22 PM CDT [facility] Blood STRUCTURE OF RIGHT UPPER LIMB / Unknown Venipuncture / Unknown 11/01/2021 3:17 PM CDT 11/01/2021 3:23 PM CDT us Epifanio Qiu MD LAB - BLOOD ORDERABLES Fin al Result [facility] Acute Care Lab [address] Lab (1st floor, no room number) [place] [address], [facility] [phone] from Last 3 Months or Most Recently Relevant to Health Maintenance Insurance [facility] Advance Directives For more information, please contact: [phone] * Full Code (Latest Code Status on File) Date Activated Date Inactivated Comments 11/01/2021 9:01 PM 11/02/2021 2:08 PM All basic an d advanced life-sustaining interventions are performed as appropriate Question Answer Comments Code status determined by: Discussion with wendy nt/ legal decision maker Care Teams Wrapper Dipper Relationship Specialty Start Date End Date Clinic, [address] [address] PCP - General 11/01/21
[2024-10-26 12:54] VITALS: BP 175/99; PULSE 86; RESP 24; TEMP 36.6; O2SAT 95; BMI 34.4
--- NOTE | 2024-10-26 13:33 | CRLHL7_ITS ---
For Patients: As a result of the Century Cures Act, medical imaging exams and procedure reports are released immediately into your electronic medical record. You may view this report before your referring provider. If you have questions, please contact your health care provider. INDICATION: Trauma, left upper quadrant and rib pain TECHNIQUE: CT chest, abdomen and pelvis acquired with 99 cc Isovue 370 IV contrast. COMPARISON: CT chest abdomen pelvis 10/23/2024 FINDINGS: CHEST: Cardiovascular structures: Mild cardiomegaly. Thoracic aorta and main pulmonary artery are normal in caliber. Mediastinum and zoltan: No mass or adenopathy. Lungs and pleura: Bibasilar atelectasis. New subtle lingular ground-glass may represent atelectasis (). No suspicious nodule. New trace bilateral pleural effusions. No pneumothorax. Chest wall and axilla: No mass or adenopathy. Bones: Possible acute nondisplaced fracture of the left posterior 9th rib (). Multilevel anterior bridging osteophytes. Healed sternal fracture. ABDOMEN AND PELVIS: Liver: Hepatic steatosis. No sign of acute injury. Gallbladder and bile ducts: Cholelithiasis. Pancreas: Unremarkable. Spleen: Unremarkable. No sign of acute injury. Adrenal glands: Unremarkable. Kidneys: Left renal cyst. GI tract: Colonic diverticulosis. No evidence of obstruction or inflammation. Vascular structures: Unremarkable. Mesenteric arteries are patent. Retroaortic left renal vein. Lymph nodes: Unremarkable. Miscellaneous: Unremarkable. No free air or significant free fluid. Pelvic Organs: Unremarkable. Bladder: Increased circumferential bladder wall thickening, possibly in part secondary to decompression. Bones and soft tissues: No acute fracture or dislocation. Decreased left flank subcutaneous contusion IMPRESSION: 1. Possible acute nondisplaced fracture of the left posterior 9th rib. Please correlate with the location of the patient`s pain 2. No definite acute soft tissue abnormality within the chest abdomen or pelvis. Possible circumferential bladder wall thickening may be secondary to decompression. Please correlate with urinalysis to exclude cystitis. 3. Hepatic steatosis Please note that all CT scans at this facility use dose modulation, iterative reconstruction, and/or weight-based dosing when appropriate to reduce radiation dose to as low as reasonably achievable. Dictated by Philly Lopez MD @ 10/26/2024 2:50:57 PM (Electronically Signed)
--- NOTE | 2024-10-26 14:48 | ED.GENADULT ---
HPI - General Adult General Chief complaint: Fall/Minor Trauma Stated complaint: whole left side pain down to leg- Fell at work Fri Time Seen by Provider: 10/26/24 13:00 Source: patient Mode of arrival: ambulatory Limitations: no limitations History of Present Illness HPI narrative: 64-year-old male presenting today with chest and abdominal pain. 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 He injured the left chest wall and left abdomen. He had a chest abdomen pelvis CT without contrast done at that time which did not show any evidence of trauma. He was also diagnosed with a lower extremity hematoma. He states that the leg is uncomfortable but his pain is not getting worse as far as his leg goes. He is able to walk, move his feet and toes without difficulty. He is complaining of worsening pain across the left chest wall and into the left abdomen. States the pain has become unbearable now whereas it was tolerable on the 1st and 2nd day. He feels slightly short of breath. He does not endorse nausea or vomiting. No fevers or chills. Related Data Home Medications ?Medication ?Instructions ?Recorded ?Confirmed atorvastatin 20 mg tablet 20 mg PO DAILY 04/17/24 10/23/24 diltiazem HCl 120 mg 120 mg PO BID 04/17/24 10/23/24 capsule,extended release 24 hr, controlled furosemide 20 mg tablet 20 mg PO DAILY 04/17/24 10/23/24 lisinopril 40 mg tablet 40 mg PO DAILY 04/17/24 10/23/24 metoprolol succinate 100 mg 100 mg PO BID 04/17/24 10/23/24 tablet,extended release 24 hr rivaroxaban 20 mg tablet (Xarelto) 20 mg PO QPM 04/17/24 10/26/24 Held on 10/26/24. Instructions: Doctor's Order Previous Rx's ?Medication ?Instructions ?Recorded furosemide 20 mg tablet 20 mg PO DAILY #30 tabs 04/17/24 lisinopril 40 mg tablet 40 mg PO DAILY #30 tabs 04/17/24 metoprolol succinate 100 mg 100 mg PO DAILY #30 tabs 04/17/24 tablet,extended release 24 hr rivaroxaban 20 mg tablet (Xarelto) 20 mg PO DAILY #30 tabs 04/17/24 Held on 10/26/24. Instructions: Doctor's Order Allergies Allergy/AdvReac Type Severity Reaction Status Date / Time No Known Drug Allergies Allergy Verified 10/23/24 14:35 Review of Systems Status of ROS: Reports: 10 or more systems reviewed and unremarkable except as noted in History and below [facility] Social History Smoking Status: Never smoker Do you use any of these nicotine containing products: None Second hand tobacco smoke exposure: No How often do you have a drink containing alcohol: 2-4 times a month AUDIT-C Alcohol total score: 2 Non-prescribed substance use: denies use service: No Exam Narrative: Exam Narrative: Overweight, well-developed patient , appears quite uncomfortable. Alert and oriented. Answers questions appropriately. Mood and affect are appropriate. Thoughts are goal oriented and rational. No tangential or magical thinking noted. Patient speaks in full sentences without needing to catch his breath. HEENT: Normocephalic atraumatic. Pupils are equally round reactive to light. Extraocular muscles are intact. Conjunctivae are moist without any icterus noted. Moist mucous membranes. Cardiovascular: Heart is regular rate and rhythm S1 and S2 are present without any murmurs. Lungs: Clear to auscultation bilaterally no wheezes rhonchi or rales are appreciated. Patient has a hard time taking deep breaths. Patient has no obvious bruising along the chest wall but has discomfort with palpation over the mid axillary line on the left along the lower ribs. Abdomen: Very firm and tympanic. Not very tender. Hypoactive bowel sounds. Patient has ecchymosis around the lateral left lower abdomen. Extremities: Bilateral lower extremities both have edema with tight skin. The left is greater than the right with a hematoma present. Leg has good pulses, is not pale. Level of pain is expected for this injury. Skin: Well perfused. Const: Vital Signs, click to edit/add: Vital Signs - 24 hr 10/26/24 12:54 Temperature 97.8 F Pulse Rate [Pulse Oximeter] 86 Respiratory Rate 24 Blood Pressure [Ri ght Upper Arm] 175/99 H Pulse Oximetry 95 Oxygen Delivery Me thod Room Air Course Course ED Course: Differential diagnoses includes rib fracture, perforated organ- spleen, or organ laceration. Proceeded with chest abdomen pelvis CT with contrast. This did not show pathology of the organs. Did show probable fracture of the 9th rib on the left - very much consistent with the location of his pain. Vital Signs Vital signs: Initial Vital Signs Temperature 97.8 F 10/26/24 12:54 Temperature Source Temporal Artery Scan 10/26/24 12:54 Pulse Rate 86 10/26/24 12:54 Respiratory Rate 24 10/26/24 12:54 Blood Pressure 175/99 H 10/26/24 12:54 Blood Pressure Mean 124 H 10/26/24 12:54 Blood Pressure Position Sitting 10/26/24 12:54 Pulse Oximetry 95 10/26/24 12:54 Oxygen Delivery Method Room Air 10/26/24 12:54 Vital Signs Temperature 97.8 F 10/26/24 12:54 Pulse Rate 86 10/26/24 12:54 Respiratory Rate 24 10/26/24 12:54 Blood Pressure 175/99 H 10/26/24 12:54 Pulse Oximetry 95 10/26/24 12:54 Oxygen Delivery Method Room Air 10/26/24 12:54 Temperature 97.8 F 10/26/24 12:54 Pulse Rate 86 10/26/24 12:54 Respiratory Rate 24 10/26/24 12:54 Blood Pressure 175/99 H 10/26/24 12:54 Pulse Oximetry 95 10/26/24 12:54 Oxygen Delivery Method Room Air 10/26/24 12:54 Medical Decision Making MDM Narrative Medical decision making narrative: 64-year-old male with a rib fracture status post fall. Will send the patient home with Percocet. Discussed side effects and reasons for follow-up. Lab Data Labs: Lab Results 10/26/24 Range/Units 13:57 POC Creatinine 1.0 (0.6-1.3) mg/dl Imaging Data CT Chest/Ab/Pelvis: Attestation: I have reviewed the pertinent imaging results. Radiologist's impression: TECHNIQUE: CT chest, abdomen and pelvis acquired with 99 cc Isovue 370 IV contrast. COMPARISON: CT chest abdomen pelvis 10/23/2024 FINDINGS: CHEST: Cardiovascular structures: Mild cardiomegaly. Thoracic aorta and main pulmonary artery are normal in caliber. Mediastinum and zoltan: No mass or adenopathy. Lungs and pleura: Bibasilar atelectasis. New subtle lingular ground-glass may represent atelectasis (). No suspicious nodule. New trace bilateral pleural effusions. No pneumothorax. Chest wall and axilla: No mass or adenopathy. Bones: Possible acute nondisplaced fracture of the left posterior 9th rib (). Multilevel anterior bridging osteophytes. Healed sternal fracture. ABDOMEN AND PELVIS: Liver: Hepatic steatosis. No sign of acute injury. Gallbladder and bile ducts: Cholelithiasis. Pancreas: Unremarkable. Spleen: Unremarkable. No sign of acute injury. Adrenal glands: Unremarkable. Kidneys: Left renal cyst. GI tract: Colonic diverticulosis. No evidence of obstruction or inflammation. Vascular structures: Unremarkable. Mesenteric arteries are patent. Retroaortic left renal vein. Lymph nodes: Unremarkable. Miscellaneous: Unremarkable. No free air or significant free fluid. Pelvic Organs: Unremarkable. Bladder: Increased circumferential bladder wall thickening, possibly in part secondary to decompression. Bones and soft tissues: No acute fracture or dislocation. Decreased left flank subcutaneous contusion IMPRESSION: 1. Possible acute nondisplaced fracture of the left posterior 9th rib. Please correlate with the location of the patient`s pain 2. No definite acute soft tissue abnormality within the chest abdomen or pelvis. Possible circumferential bladder wall thickening may be secondary to decompression. Please correlate with urinalysis to exclude cystitis. 3. Hepatic steatosis Discharge Plan Discharge Clinical Impression: Fracture of rib Patient Disposition: Home, Self-Care Condition: Stable Instructions: Rib Fracture (ED) Additional Instructions: Take pain medications as needed. These pain medications are narcotic pain medication that can cause increased constipation. You should consider using daily MiraLax or stool softener like Colace while you take these medications. Medications can also cause dizziness and increased risk of fall, do not operate heavy machinery while taking this medication. As far as your leg, continue to elevated as much as possible. If your pain increases in your leg, your toes or your feet turn white or pale you should return to the emergency department. 8 tablets of Percocet sent to [facility]. Prescriptions: No Action atorvastatin 20 mg tablet 20 mg PO DAILY metoprolol succinate 100 mg tablet extended release 24 hr 100 mg PO BID diltiazem HCl 120 mg capsule,ext.rel 24h degradable 120 mg PO BID furosemide 20 mg tablet 20 mg PO DAILY lisinopril 40 mg tablet 40 mg PO DAILY Xarelto 20 mg tablet 20 mg PO QPM Xarelto 20 mg tablet 20 mg PO DAILY Qty: 30 2RF Rx Instructions: must administer with evening meal metoprolol succinate 100 mg tablet extended release 24 hr 100 mg PO DAILY Qty: 30 2RF furosemide 20 mg tablet 20 mg PO DAILY Qty: 30 2RF lisinopril 40 mg tablet 40 mg PO DAILY Qty: 30 2RF Follow Up/Referrals: Josee Teague DO [Primary Care Provider, Family Practice] [facility]: [facility] Inst[facility]
[2024-10-26 15:28] VITALS: BP 138/88; PULSE 88; RESP 20
== END 2024-10-26 15:29 | disposition home or self-care (01) ==
PROVIDERS: Family Medicine; Emergency Provider Family Medicine; PCP Family Medicine
DX: S80.12XA Contusion of left lower leg, initial encounter (principal)
CPT/HCPCS: 36415; 71260; 74177; 82565; 99284; Q9967

== ENCOUNTER 2024-11-03 14:26 | Emergency (ER) | payer OTHER, SELFPAY ==
--- OUTSIDE RECORDS SUMMARY | 2024-11-03 14:28 | XMS_ITS | Clinical Summary ---
Author Organization [place] Address [facility] 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 Gender Identity Not on file Sexual Orientation [...] BLOOD ORDERABLES Fin al Result [facility] [place] Core Lab [address] [facility] J [facility], [address] [place] [address], [facility] [phone] * ALT (2022 7:45 AM CDT) ALT 48 10 - 50 U/L 2022 8:21 AM CDT [facility] Blood STRUCTURE OF LEFT UPPER LIMB / Unknown Venipuncture / Unknown 2022 7:45 AM CDT 2022 7:50 AM CDT Kodak Rome MD LAB - BLOOD ORDERABLES Fin al Result LABORATORY [facility] Acute Care Lab [address] Lab (1st floor, no room number) [place] [address], [facility] [phone] * (ABNORMAL) Basic metabolic panel (2022 7:45 [...] BLOOD ORDERABLES Fin al Result [facility] Acute Care Lab [address] Lab (1st floor, no room number) [place] [address], [facility] [phone] * CBC with platelets (11/02/2021 6:12 AM CDT) [facility] WBC Count 6.0 4.0 - 11.0 [...] - BLOOD ORDERABLES Fin al Result LABORATORY [facility] Acute Care Lab [address] Lab (1st floor, no room number) [place] [address], [facility] [phone] * (ABNORMAL) TSH with free T4 reflex (11/01/2021 3:17 PM CDT) TSH 4.29(H) 0.40 - 4.00 mU/L 11/01/2021 4:22 PM CDT [facility] Blood STRUCTURE OF RIGHT UPPER LIMB / Unknown Venipuncture / Unknown 11/01/2021 3:17 PM CDT 11/01/2021 3:23 PM CDT us Epifanio Qiu MD LAB - BLOOD ORDERABLES Fin al Result [facility] Acute Care Lab [address] Lab (1st floor, no room number) [place] [address], [facility] [phone] from Last 3 Months or Most Recently Relevant to Health Maintenance Insurance [facility] Advance Directives For more information, please contact: [phone] * Full Code (Latest Code Status on File) Date Activated Date Inactivated Comments 11/01/2021 9:01 PM 11/02/2021 2:08 PM All basic an d advanced life-sustaining interventions are performed as appropriate Question Answer Comments Code status determined by: Discussion with wendy nt/ legal decision maker Care Teams Top Stitcher Relationship Specialty Start Date End Date Clinic, [address] [address] PCP - General 11/01/21
--- OUTSIDE RECORDS SUMMARY | 2024-11-03 14:28 | XMS_ITS | Clinical Summary ---
Author Organization [facility] Address [address] [place] [id number] Care Team Providers Care Blind Installer Name Role Phone Josee Teague DO Primary Care Provider [phone] Allergies No known active allergies Medications diclofenac topical (VOLTAREN) 1 % gelIndications:Art hralgia, unspecified joint Apply as instructed to affected area by topical route twice daily. 100 g 06/10/19 24 Active rivaroxaban (XARELTO) 20 mg tabletIndications: Persistent atrial fibrillation (HC) Take 1 Tablet (20 mg) by mouth once daily with evening meal. 90 Tablet 3 04/28/20 24 Active Additional Information Patient not taking.Reason: on hold per ED visit, Reported on 10/29/2024 lisinopriL (PRINIVIL; ZESTRIL) 40 mg tabletIndications: Hypertension, unspecified type Take 1 Tablet (40 mg) by mouth once daily. 90 Tablet 3 04/28/20 24 Active atorvastatin (LIPITOR) 20 mg tabletIndications: Hyperlipidemia, unspecified hyperlipidemia type Take 1 Tablet (20 mg) by mouth once daily with evening meal. 90 Tablet 3 04/28/20 24 Active furosemide (LASIX) 20 mg tabletIndications: Chronic systolic CHF (congestive heart failure) (HC) Take 1 Tablet (20 mg) by mouth once daily in the morning. 90 Tablet 3 04/28/20 24 Active triamcinolone (ARISTOCORT; KENALOG) 0.1 % creamIndications:P soriasis Apply to scalp psoriasis 1-2 times a day as needed 80 g 2 04/28/20 24 Active lidocaine 5 % topical patchIndications:A cute pain of right shoulder Apply on dry, clean, hairless skin. Apply 1 patch to painful area of skin for up to to 12 hours within 24 hour period. 30 Patch 11 07/02/19 25 Active Additional Information Patient not taking.Reported on 10/29/2024 metoprolol succinate (Toprol XL) 100 mg Sustained-Release tabletIndications: Persistent atrial fibrillation (HC) Take 1 Tablet (100 mg) by mouth once daily. 90 Tablet 3 07/02/19 25 Active HYDROcodone-acetam inophen (5-325 mg/tablet)Indicati ons:Traumatic closed nondisplaced fracture of one rib, left, initial encounter,Contusio n of left lower extremity, subsequent encounter Take 1 Tablet by mouth 4 times daily if needed for Pain. Use least amount possible. Max acetaminophen dose: 4000 mg in 24 hrs. 15 Tablet 10/30/19 25 Active Active Problems Problem Noted Date Diagnosed Date Ascending aorta dilation 06/11/2024 Overview (06/11/2024): Echocardiogram 05/2024 = 4.1, repeat 1 year Persistent atrial fibrillation 11/29/2021 Decreased cardiac ejection fraction 11/29/2021 Overview (02/04/2022): EF 50-55% 2021 Alcohol abuse 01/27/2013 Elevated liver enzymes 01/27/2013 HTN (hypertension) 10/15/2011 Encounters Date Type Department Care Team Description 11/03/[address] [facility] [address] [place] [address] Josee Teague, DO Leg Pain/problem 10/30/[address] [facility] [address] [place] [address] Josee Teague, DO Skin Problem 10/29/2024 4:00 PM CDT Ancillary Procedure [facility] [address] [place] [address] Arrived 10/29/2024 2:40 PM CDT Office Visit [facility] [address] [place] [address] Simba Wesley MD ER Follow up (2 visit's to [place] [facility] 10/23/2024 & 10/26/2024); Occ Med (DOI 10/23/2024 Missed a step in [employer] striking his LEFT Mid-Axillary Line - Abdomen and Chest. Also striking the LEFT side of his LEFT Leg ) 10/29/2024 Travel 10/26/2024 Orders Only [facility] Scanner 1 scan: (1-Ord) [place], CT CHEST ABDOMEN PELV W CON, 10/26/2024 10/23/2024 Orders Only [facility] Scanner 1 scan: (1-Ord) [facility], LOWER EXTREMITY LT NON VASC, 10/23/2024 10/23/2024 Orders Only [facility] Scanner 1 scan: (1-Ord) [facility], CT CHEST ABDOMEN PELV WO CONTRAST , 10/23/2024 from Last 3 Months Immunizations Immunization Administration Dates Next Due COVID-19 vaccine (Traitify-J&J) PF, MDV INFLUENZA, IIV3 PF (AGE >= [...] Date Recorded PHQ-2 TOTAL SCORE 0 04/28/2024 Social Connections Answer Date Recorded Do you often feel lonely or isolated from those around you? 0 10/29/2024 Alcohol Use Answer Date Recorded How often do you have a drink containing alcohol ? 2 02/01/2022 How many drinks containing a lcohol do you have on a typical day when you are drinking? 4 02/01/2022 How often do you have five or more drinks on one occasion? 2 02/01/2022 Financial Resource Strain Answer Date R ecorded Difficulty of Paying Living Expenses 3 10/29/2024 Difficulty of Paying Living Expenses Not on file 10/29/2024 Food Insecurity Answer Date Recorded Do you worry your food will run out before you are able to buy more? 1 10/29/2024 Transportation Needs Answer Date Record ed Does lack of transportation keep you from medica l appointments? 1 10/29/2024 Does lack of transportation keep you from work, meetings or getting things that you need? 1 10/29/2024 Housing Stability Answer Date Recorded What is your housing situation today? 1 10/29/2024 Utilities Answer Date Recorded Do you have trouble paying f or utilities (for example, heat, electricity, water, phone)? 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 Not on file Not on file Not on file Obstetrics History Last Filed Vital Signs Vital Sign Reading Time Taken Comments Blood Pressure 133/87 10/29/2024 3:08 PM CDT recheck after 5 minutes Pulse 85 10/29/2024 2:45 PM CDT Temperature 36.7 C (98 F) 04/24/2021 4:11 PM MINER ASSISTANT Respiratory Rate 16 04/24/2021 4:11 PM MINER ASSISTANT Oxygen Saturation 96% 10/29/2024 2:4 5 PM CDT Inhaled Oxygen Concentration - - Weight 111.6 kg (246 lb) 10/29/2024 2:4 5 PM CDT Height 173.5 cm (5' 8.31) 04/28/2024 3 :04 PM MINER ASSISTANT Body Mass Index 37.07 04/28/2024 3:04 PM MINER ASSISTANT Plan of Treatment Upcoming Encounters Date Type Department Care Team (Late st Contact Info) Description 11/10/2024 9:55 AM CDT Office Visit [facility] [address] [place] [address] Simba Wesley MD [address] [place] [address] Health Maintenance Due Date Last Done Comments [...] Procedure Name Priority Date/Time Associated Diagnosis Comments XR TIBIA AND FIBULA 2 VIEWS LEFT Routine 10/29/2024 4:13 PM CDT Contusion of left lower extremity, subsequent encounter SCAN-CT INTERPRETATION 10/26/2024 12:00 AM CDT SCAN-ULTRASOUND REPORT 10/23/2024 12:00 AM CDT SCAN-CT INTERPRETATION 10/23/2024 12:00 AM CDT ANTI HIV 1/2 Routine 04/28/2024 4:38 PM MINER ASSISTANT Screening for HIV (human immunodeficiency virus) LIPID PANEL W REFLEX MEASURED LDL Routine 04/28/2024 4:38 PM MINER ASSISTANT Hyperlipidemia, unspecified hyperlipidemia type ANTI HCV Routine 01/12/2014 4:15 PM CDT Need for hepatitis C screening test from Last 3 Months or Most Recently Relevant to Health Maintenance Results * XR TIBIA AND FIBULA 2 VIEWS LEFT (10/29/2024 4:13 PM CDT) Anatomical Region Laterality Modality Tibia Computed Radiogr aphy 10/30/2024 2:56 PM CDT Narrative 10/30/2024 2:56 PM CDT For Patients: As a result of the Cures Act, medical imaging exams and procedure reports are released immediately into your electronic medical record. You may view this report before your referring provider. If you have questions, please contact your health care provider. Indication: Contusion, pain Technique: Two views left tibia and fibula Comparison: None Findings: Periostitis involving the medial tibial diaphysis at the proximal 3rd. Mild spurring of the anterior tibial plafond. The fibula is intact. Impression: Stress reaction involving the medial proximal tibial diaphysis. Dictated by Pb Cat MD @ 10/30/2024 2:56:57 PM (Electronically Signed) Procedure Note Pb Cat MD - 10/30/2024 For Patients: As a result of the Cures Act, medical imagingexams and procedure reports are released immediately into your electronicmedical record. You may view this report before your referring provider.If you have questions, please contact your health care provider. Indication: Contusion, pain Technique: Two views left tibia and fibula Comparison: None Findings: Periostitis involving the medial tibial diaphysis at the proximal 3rd.Mild spurring of the anterior tibial plafond. The fibula is intact. Impression: Stress reaction involving the medial proximal tibial diaphysis. Dictated by Pb Cat MD @ 10/30/2024 2:56:57 PM (Electronically Signed) us Simba Wesley MD GENERAL IMAGING Final Res ult * SCAN-CT INTERPRETATION (10/26/2024 12:00 AM CDT) Only the most recent of2 resultswithin the time period is included. Anatomical Region Laterality Modality Other us Scanner OTHER Final Result * SCAN-ULTRASOUND REPORT (10/23/2024 12:00 AM CDT) Anatomical Region Laterality Modality Other us Scanner OTHER Final Result * (ABNORMAL) LIPID PANEL W REFLEX MEASURED LDL (04/28/2024 4:38 PM MINER ASSISTANT) CHOLESTEROL, TOTAL 127 <200 mg/dL [facility] HDL CHOLESTEROL 38(L) > OR = 40 mg/dL [facility] TRIGLYCERIDES 291(H) <150 mg/dL [facility] Comment: If a non-fasting specimen was collected, consider repeat triglyceride testing on a fasting specimen if clinically indicated. Apolinar et al. J. of Clin. Lipidol. 2015;9:129-169. LDL-CHOLESTEROL 55 mg/dL (calc) [facility] Comment: Reference range: <100 Desirable range <100 mg/dL for primary prevention; <70 mg/dL for patients with CHD or diabetic patients with > or = 2 CHD risk factors. LDL-C is now calculated using the Óscar-Grijalva calculation, which is a validated novel method providing better accuracy than the Friedewald equation in the estimation of LDL-C. Óscar SS et al. JW. 2013;310(19): 3857-0195 (http://education.Adhesive.co/faq/XLY387) CHOL/HDLC RATIO 3.3 <5.0 (calc) [facility] NON HDL CHOLESTEROL 89 <130 mg/dL (calc) [facility] Comment: For patients with diabetes plus 1 major ASCVD risk factor, treating to a non-HDL-C goal of <100 mg/dL (LDL-C of <70 mg/dL) is considered a therapeutic option. Blood BLOOD SPECIMEN / Unknown 04/28/2024 4:38 PM MINER ASSISTANT 04/28/2024 4:39 PM MINER ASSISTANT us Josee Teague DO CHEMISTRY Final Resu lt Performing Organization Address [facility] Co de Phone Number [employer] [facility] [address] [place] [address], [facility] [address] [place] [address] * ANTI HIV 1/2 [46301.0] (04/28/2024 4:38 PM MINER ASSISTANT) Pathologist [facility] HIV AG/AB, 4TH GEN NON-REACT LILIA NON-REACT LILIA [facility] Comment: HIV-1 antigen and HIV-1/HIV-2 antibodies were [...] purpose. For additional information please refer to http://education.[employer]/faq/KWD755 (This link is being provided for informational/ educational purposes only.) The performance of this assay has not been clinically validated in patients less than 2 years old. Blood BLOOD SPECIMEN / Unknown 04/28/2024 4:38 PM MINER ASSISTANT 04/28/2024 4:39 PM MINER ASSISTANT Josee Teague DO SEND OUTS Final Resu lt Performing Organization Address [facility] Co de Phone Number [employer] [facility] [address] [place] [address], [facility] [address] [place] [address] * ANTI HCV [34282.2] (01/12/2014 4:15 PM CDT) Pathologist [facility] HEPATITIS C ANTIBODY Non-Reacti ve Non-Reacti ve 01/13/2014 1:19 PM CDT [facility] Blood specimen (specimen) BLOOD SPECIMEN / Unknown Venipuncture / Unknown 01/12/2014 4:15 PM CDT 01/12/2014 4:15 PM CDT Narrative [facility] - 01/13/2014 1:19 PM CDT Antibodies to HCV not detected; does not exclude the possibility of exposure to HCV. us Josee Teague DO SEND OUTS Final Resu lt [facility] [address] [place] [address], [place] from Last 3 Months or Most Recently Relevant to Health Maintenance Insurance [facility] [employer] [facility] F[employer] [facility] * Guarantor: ANJALI LEASING GUILLERMO Account Type Relation to Patient Date of Phone Billing Address [facility] [address] [place] [address] Care Teams Blind Installer Relationship Specialty Start Date End Date Josee Teague DO [address] [place] [address] PCP - General Family Practice 04/27/24
[2024-11-03 14:41] VITALS: BP 159/84; PULSE 81; RESP 18; TEMP 36.8; O2SAT 95; BMI 34.4
--- NOTE | 2024-11-03 15:15 | ED.LOWEXIN ---
HPI - Extremity Injury (Lower) General Chief Complaint: Extremity Pain/Injury, Lower Stated Complaint: fell, injured leg and hip Time Seen by Provider: 11/03/24 14:29 Source: patient Mode of arrival: ambulatory Limitations: no limitations History of Present Illness HPI Narrative: Patient is a very nice gentleman who injured his left leg, and left hip region, was initially seen here on the 23 of October. So 11 days ago, since then he has a large hematoma of his left lower leg. He is here today for follow-up, as he is placed on a few days ago Keflex for possible cellulitis of his left leg, he has not had a fever, he feels almost at times that he has some numbness and tingling in his foot. He is on Xarelto, he has had ultrasound x-ray of his left leg. Otherwise feels fine, is off work currently, try and elevate his foot as much as possible. Related Data Home Medications ?Medication ?Instructions ?Recorded ?Confirmed atorvastatin 20 mg tablet 20 mg PO DAILY 04/17/24 11/03/24 diltiazem HCl 120 mg 120 mg PO BID 04/17/24 11/03/24 capsule,extended release 24 hr, controlled furosemide 20 mg tablet 20 mg PO DAILY 04/17/24 11/03/24 lisinopril 40 mg tablet 40 mg PO DAILY 04/17/24 11/03/24 metoprolol succinate 100 mg 100 mg PO BID 04/17/24 11/03/24 tablet,extended release 24 hr rivaroxaban 20 mg tablet (Xarelto) 20 mg PO QPM 04/17/24 11/03/24 Previous Rx's ?Medication ?Instructions ?Recorded furosemide 20 mg tablet 20 mg PO DAILY #30 tabs 04/17/24 lisinopril 40 mg tablet 40 mg PO DAILY #30 tabs 04/17/24 metoprolol succinate 100 mg 100 mg PO DAILY #30 tabs 04/17/24 tablet,extended release 24 hr rivaroxaban 20 mg tablet (Xarelto) 20 mg PO DAILY #30 tabs 04/17/24 cephalexin 500 mg capsule See Rx Instructions PO .ud #48 caps 10/30/24 Allergies Allergy/AdvReac Type Severity Reaction Status Date / Time No Known Drug Allergies Allergy Verified 11/03/24 14:47 Review of Systems Status of ROS: Reports: 10 or more systems reviewed and unremarkable except as noted in History and below [facility] Social History Smoking Status: Never smoker Do you use any of these nicotine containing products: None Second hand tobacco smoke exposure: No How often do you have a drink containing alcohol: 2-4 times a month AUDIT-C Alcohol total score: 2 Non-prescribed substance use: denies use service: No Exam Narrative: Exam Narrative: On examination there is clearly a large hematoma of his left distal leg. On the lateral side, he has good cap refill of his foot, when elevated at the redness does improved. I am unable to feel pulses, but with Doppler I can find him quite easily. There is bruising noted all around his toes, with edema, and he also has bruising on his left lower quadrant and around his hip. Movement is normal he is able to walk on his foot. No warmth to his foot. Const: Vital Signs, click to edit/add: Vital Signs - 24 hr 11/03/24 14:41 Temperature 98.3 F Pulse Rate [Right Pulse Oximeter] 81 Respiratory Rate 18 Blood Pressure [Ri ght Upper Arm] 159/84 H Pulse Oximetry 95 Oxygen Delivery Me thod Room Air Documenting provider has reviewed patient's vital signs: yes Course Course ED Course: I explained to him that I really do not see any evidence of infection this is all with the blood, the large hematoma has to resolving this can take 3-6 months to improve. The he is however a set up for infection given his history, but I would continue with Keflex rate now reassurance given he needs to elevate this as much as possible greater than 8 hours a day above the level of his heart. Will help resolution, along with a little bit of warmth over this area. Continue with his current medications, follow up as needed her back here if worse. Cam walker may help this also. Vital Signs Vital signs: Initial Vital Signs Temperature 98.3 F 11/03/24 14:41 Temperature Source Temporal Artery Scan 11/03/24 14:41 Pulse Rate 81 11/03/24 14:41 Pulse Rhythm Regular 11/03/24 14:41 Pulse Strength 3+ Normal 11/03/24 14:41 Respiratory Rate 18 11/03/24 14:41 Blood Pressure 159/84 H 11/03/24 14:41 Blood Pressure Mean 109 H 11/03/24 14:41 Blood Pressure Position Sitting 11/03/24 14:41 Pulse Oximetry 95 11/03/24 14:41 Oxygen Delivery Method Room Air 11/03/24 14:41 Vital Signs Temperature 98.3 F 11/03/24 14:41 Pulse Rate 81 11/03/24 14:41 Respiratory Rate 18 11/03/24 14:41 Blood Pressure 159/84 H 11/03/24 14:41 Pulse Oximetry 95 11/03/24 14:41 Oxygen Delivery Method Room Air 11/03/24 14:41 Temperature 98.3 F 11/03/24 14:41 Pulse Rate 81 11/03/24 14:41 Respiratory Rate 18 11/03/24 14:41 Blood Pressure 159/84 H 11/03/24 14:41 Pulse Oximetry 95 11/03/24 14:41 Oxygen Delivery Method Room Air 11/03/24 14:41 MDM - Extremity Injury (Lower) MDM Narrative Medical decision making narrative: Infection verses DVT versus subcutaneous hematoma versus cellulitis. Medical Records Attestation: I reviewed the patient's medical records. Medical records narrative: Reviewed ER visits, I also reviewed primary care visit. Lab Data Attestation: I reviewed the patient's lab results. Lab results narrative: The review previous visit laboratory work x-ray. Discharge Plan Discharge Clinical Impression: Subcutaneous hematoma Patient Disposition: Home, Self-Care Condition: Stable Additional Instructions: Home rest, I explained the the patient that he has a large hematoma of his left leg, I do not feel this is infected, there is no significant warmth to this. This is part and parcel with the blood as it is a tremendous irritant. Needs to elevate this as much as possible in no this is going to be 3-6 months for this to resolve. He continues on with his Xarelto. Continue with his Keflex, reassurance given we will give a cam walker also. Activity Level: Light activity Prescriptions: No Action cephalexin 500 mg capsule See Rx Instructions PO .ud Qty: 48 0RF Rx Instructions: 1000 mg tid for 4D, then 500 mh QID for 6D. orally UD; atorvastatin 20 mg tablet 20 mg PO DAILY metoprolol succinate 100 mg tablet extended release 24 hr 100 mg PO BID diltiazem HCl 120 mg capsule,ext.rel 24h degradable 120 mg PO BID furosemide 20 mg tablet 20 mg PO DAILY lisinopril 40 mg tablet 40 mg PO DAILY Xarelto 20 mg tablet 20 mg PO QPM Xarelto 20 mg tablet 20 mg PO DAILY Qty: 30 2RF Rx Instructions: must administer with evening meal metoprolol succinate 100 mg tablet extended release 24 hr 100 mg PO DAILY Qty: 30 2RF furosemide 20 mg tablet 20 mg PO DAILY Qty: 30 2RF lisinopril 40 mg tablet 40 mg PO DAILY Qty: 30 2RF Follow Up/Referrals: Josee Teague DO [Primary Care Provider, Family Practice] Stand Alone Forms: MyHealth Info Instructions
--- NOTE | 2024-11-03 15:47 | ED.NURSE ---
Patient was fitted with post op shoe. He reports less restriction and pain than the shoe he had been using.
== END 2024-11-03 15:56 | disposition home or self-care (01) ==
LOC: ED 15:39
PROVIDERS: Emergency Provider Family Medicine; PCP Family Medicine
DX: S80.12XA Contusion of left lower leg, initial encounter (principal)
CPT/HCPCS: 99283